=== PATIENT | male | born 2000 | race Caucasian/White ===

== ENCOUNTER → 2019-12-15 14:07 | Outpatient (POV) | payer MEDICAID, SELFPAY | DX: Z00.00 Encounter for general adult medical examination without abnormal findings (principal) ==

== ENCOUNTER 2020-01-09 18:29 | Emergency (ER) | payer OTHER, SELFPAY ==
[2020-01-09 18:50] VITALS: BP 131/67; PULSE 84; RESP 20; TEMP 36.8; O2SAT 100; BMI 25.0
--- NOTE | 2020-01-09 18:56 | HMH.EDUTC ---
[facility] [place] Disposition Clinical Impression: Exposure to COVID-19 virus, Viral syndrome Disposition: Home, Self-Care Condition on Discharge: Good Instructions: DI for Viral Syndrome, Preventing the Spread of Coronavirus Discharge Instructions Additional Instructions: Drink plenty of fluids. Take tylenol for pain or fever. Return if you begin to have difficulty breathing. Follow up with your regular doctor. GO TO THE ER FOR ANY WORSENING SYMPTOMS Prescriptions: Ondansetron [Zofran 4mg ODT] 4 mg PO Q8HP PRN #12 tab.rapdis PRN Reason: Nausea Transmission Status: Received by [id number] Referrals: PCP,No [Primary Care Provider] - Forms: Work/School Release Time of Disposition: 19:28 Medical Decision Making - Medical Records Medical records reviewed: No: I reviewed the patient's medical records. - Mykel Inquiry Pt receiving controlled substance: No Vital Signs: 01/09/20 18:50 01/09/20 19:29 Temperature 98.3 F 98.3 F Temperature Source Oral Pulse Rate 84 Pulse Rate [Right Brachial] 84 Respiratory Rate 20 20 Blood Pressure 131/67 Blood Pressure [Right Arm] 131/67 Blood Pressure Mean [Right Arm] 88 Blood Pressure Source [Right Arm] Automatic Cuff Blood Pressure Position [Right Arm] Sitting 02 Sat by Pulse Oximetry 100 Oxygen Delivery Method Room Air - Lab Data Lab results reviewed: Yes: I reviewed the patient's lab results. Lab Results 01/09/20 19:10: Influenza Type A Ag Negative, Influenza Type B Ag Negative 01/09/20 19:10: Strep Scn Rapid [facility] Negative Orders (Tests/Meds): ORDERS Category Date Time Status Strep Screen Confirmation Stat Micro 01/09/20 19:10 Received [facility] [place] HPI - General Stated complaint: Chills, nausea Time Seen by Provider: 01/09/20 19:10 - History of Present Illness Provider Complaint: He states that he started feeling bad and having body aches and chilling about 6 hours ago. He denies any shortness of breath. He was exposed to covid but it has been about 2 weeks ago. - Related Data Previous Rx's Medication Instructions Recorded Ondansetron [Zofran 4mg ODT] 4 mg PO Q8HP PRN #12 tab.rapdis 01/09/20 Allergies Allergy/AdvReac Type Severity Reaction Status Date / Time No Known Allergies Allergy Verified 02/15/18 17:13 [facility] History - Hepatitis A Screen Attestation statement:: This patient has been screened for Hepatitis A risk factors. I have reviewed the patient's past medical history: Yes Laterality Cases: Bilateral: Tonsillectomy - Social History Alcohol Intake: never Occupational Status: other ROS Obtained: Yes All systems reviewed & no additional complaints - Constitutional Constitutional: Reports chills, Reports fever(s), Reports poor appetite, Reports malaise - Eyes Eyes: Denies eye discharge - ENT Ears, Nose, Mouth, and Throat: Denies dizziness, Denies otalgia, Reports sore throat - Cardiovascular Cardiovascular: Denies chest pain - Respiratory Respiratory: Yes chest congestion, Yes cough, No dyspnea, No stridor, No wheezing - Gastrointestinal Gastrointestingal: Reports: nausea. Denies: abdominal pain, diarrhea, vomiting Physical Exam - General General appearance: alert, in no apparent distress - Head Head exam: atraumatic, normocephalic, normal inspection - Eye Eye exam: Present: normal appearance, PERRL, EOMI - ENT ENT exam: Present: normal exam, normal oropharynx, mucous membranes moist, TM's normal bilaterally, normal external ear exam - Neck Neck exam: Present: normal inspection, full ROM, trachea midline. Absent: meningismus, lymphadenopathy - Chest Chest inspection: Present: normal inspection, symmetric chest wall rise. Absent: tenderness - Respiratory Respiratory exam: Present: normal lung sounds bilaterally. Absent: respiratory distress - Cardiovascular Cardiovascular exam: Present: regular rate, normal rhythm. Absent: JVD - Abdominal Ex
[2020-01-09 19:27] LABS: UTC Influenza A Antigen Negative (Negative); UTC Influenza B Antigen Negative (Negative); UTC Strep Screen (Rapid) Negative (Negative)
[2020-01-09 19:29] VITALS: BP 131/67; PULSE 84; RESP 20; TEMP 36.8; O2SAT 100
[2020-01-11 13:33] LABS: Covid-19 Nasal PCR Sendout Lex Not Detected
== END 2020-01-09 19:30 | disposition home or self-care (01) ==
PROVIDERS: Emergency Provider Nurse Practitioner Family
DX: Z20.828 Contact with and (suspected) exposure to other viral communicable diseases (principal); B34.9 Viral infection, unspecified
CPT/HCPCS: 87804; 87880; 99201; U0004

== ENCOUNTER 2020-02-25 13:21 | Emergency (ER) | payer OTHER, SELFPAY ==
[2020-02-25 14:10] VITALS: BP 140/72; PULSE 82; RESP 18; TEMP 37; O2SAT 98; BMI 25.1
--- NOTE | 2020-02-25 14:30 | HMH.EDUTC ---
[facility] [place] Disposition Clinical Impression: Viral syndrome, Exposure to COVID-19 virus Disposition: Home, Self-Care Condition on Discharge: Good Instructions: Preventing the Spread of Coronavirus Discharge Instructions Additional Instructions: Drink plenty of fluids. Take tylenol for pain or fever. Return if you begin to have difficulty breathing. Follow up with your regular doctor. GO TO THE ER FOR ANY WORSENING SYMPTOMS Prescriptions: Ondansetron [Zofran 4mg ODT] 4 mg PO Q8HP PRN #9 tab.rapdis PRN Reason: Nausea Transmission Status: Received by [id number] Referrals: PCP,No [Primary Care Provider] - Time of Disposition: 14:41 Medical Decision Making - Medical Records Medical records reviewed: No: I reviewed the patient's medical records. - Mykel Inquiry Pt receiving controlled substance: No Vital Signs: 02/25/20 14:10 02/25/20 14:36 Temperature 98.6 F 98.6 F Temperature Source Oral Pulse Rate 82 Pulse Rate [Right Brachial] 82 Respiratory Rate 18 18 Blood Pressure 140/72 Blood Pressure [Right Arm] 140/72 Blood Pressure Mean [Right Arm] 94 Blood Pressure Source [Right Arm] Automatic Cuff Blood Pressure Position [Right Arm] Sitting 02 Sat by Pulse Oximetry 98 Oxygen Delivery Method Room Air [facility] [place] HPI - General Stated complaint: covid test Time Seen by Provider: 02/25/20 14:30 Mode of Arrival: Ambulatory Source of Information: Patient Limitations: No Limitations Description of Symptoms (Recalled from Triage Doc. by RN): REQUESTING COVID TEST D/T EXPOSURE; C/O FEVER AND HEADACHE HEENT Symptoms (Recalled from RN notes): No Resp Symptoms (Recalled from RN notes): No Skin Symptoms (Recalled from RN notes): No MS Symptoms (Recalled from RN notes): No Functional Status (Recalled from RN notes): WNL - History of Present Illness Provider Complaint: He states that he has been having a fever and body aches since yesterday. He has been exposed to covid. - Related Data Previous Rx's Medication Instructions Recorded Ondansetron [Zofran 4mg ODT] 4 mg PO Q8HP PRN #12 tab.rapdis 01/09/20 Ondansetron [Zofran 4mg ODT] 4 mg PO Q8HP PRN #9 tab.rapdis 02/25/20 Allergies Allergy/AdvReac Type Severity Reaction Status Date / Time No Known Allergies Allergy Verified 02/15/18 17:13 - Worker's Comp Is this a Worker's Comp case?: No [facility] History - Hepatitis A Screen Drug use history?: No High risk sexual behaviors?: No History of sexually transmitted infection?: No Currently employed?: No Childcare worker?: No Do you have indoor plumbing?: Yes Do you have electricity?: Yes Attestation statement:: This patient has been screened for Hepatitis A risk factors. I have reviewed the patient's past medical history: Yes Laterality Cases: Bilateral: Tonsillectomy - Social History Alcohol Intake: never Occupational Status: other ROS Obtained: Yes All systems reviewed & no additional complaints - Constitutional Constitutional: Reports system reviewed and no additional complaints, except as docu - Eyes Eyes: Reports system reviewed and no additional complaints, except as docu - ENT Ears, Nose, Mouth, and Throat: Reports system reviewed and no additional complaints, except as docu - Cardiovascular Cardiovascular: Reports system reviewed and no additional complaints, except as docu - Respiratory Respiratory: Reports system reviewed and no additional complaints, except as docu - Gastrointestinal Gastrointestingal: Reports: system reviewed and no additional complaints, except as docu Physical Exam - General General appearance: alert, in no apparent distress - Head Head exam: atraumatic, normocephalic, normal inspection - Eye Eye exam: Present: normal appearance, PERRL, EOMI - ENT ENT exam: Present: normal exam, normal oropharynx, mucous membranes moist, TM's normal bilaterally, normal external ear exam - Neck Neck exam: Present: no
[2020-02-25 14:36] VITALS: BP 140/72; PULSE 82; RESP 18; TEMP 37; O2SAT 98
--- NOTE | 2020-02-25 20:16 | PC.NURSE ---
ATTEMPTED TO CALL PT AND NO ANSWER. WILL TRY AGAIN LATER
--- NOTE | 2020-02-26 14:34 | PC.NURSE ---
PT NOTIFIED OF POSITIVE COVID RESULT
== END 2020-02-25 14:45 | disposition home or self-care (01) ==
PROVIDERS: Emergency Provider Nurse Practitioner Family
DX: U07.1 COVID-19 (principal)
CPT/HCPCS: 99202; G0463; U0003

== ENCOUNTER 2020-03-07 13:59 | Emergency (ER) | payer OTHER, SELFPAY ==
[2020-03-07 14:15] VITALS: BP 138/86; PULSE 89; RESP 18; TEMP 36.9; O2SAT 99; BMI 23.2
--- NOTE | 2020-03-07 14:44 | HMH.EDUTC ---
[facility] [place] Clinical Impression: Encounter for laboratory testing for COVID-19 virus Disposition: Home, Self-Care Condition on Discharge: Good Instructions: DI for COVID-19 (Suspected or Confirmed ), Coronavirus Disease 2019, Preventing the Spread of Coronavirus Discharge Instructions Additional Instructions: *Monitor Temp, Over the counter Motrin or Tylenol as directed/as needed Tylenol every 4 hours and Motrin every 6 hours (as long as your family doctor has told you that you can take it) for fever or pain. and straight to ER if unable to lower temp less than 101.0 after medication given Follow up IMMEDIATELY for new or worsening symptoms or no Noticeable improvement over the next 48-72 hours. 911 for difficulty breathing or swallowing You were tested for today for COVID19 your test result should be back in the next 24-48 hours, you may call to the [facility] [[email or web address]] to see if your test results are back in the next 48 hours [phone] [facility] [[email or web address]] hours are 9am-9pm You was given a handout with instructions for Self Quarantine and Self isolation for while you wait on test results and what to do if they are positive If you are positive the Health Dept will be contacting you also Referrals: PCP,No [Primary Care Provider] - As needed Forms: Work/School Release Time of Disposition: 14:44 Medical Decision Making - Mykel Inquiry Pt receiving controlled substance: No Mykel was queried for this patient: No Vital Signs: 03/07/20 14:15 Temperature 98.4 F Temperature Source Oral Pulse Rate [Right Brachial] 89 Respiratory Rate 18 Blood Pressure [Right Arm] 138/86 Blood Pressure Mean [Right Arm] 103 Blood Pressure Source [Right Arm] Automatic Cuff Blood Pressure Position [Right Arm] Sitting 02 Sat by Pulse Oximetry 99 Oxygen Delivery Method Room Air Orders (Tests/Meds): ORDERS Category Date Time Status Covid-19 Nasal PCR Sendout P&[facility] Stat Lab 03/07/20 14:20 Received [facility] [place] - General Stated complaint: covid test Time Seen by Provider: 03/07/20 14:44 Mode of Arrival: Ambulatory Source of Information: Patient Limitations: No Limitations Description of Symptoms (Recalled from Triage Doc. by RN): NEEDING COVID TEST HEENT Symptoms (Recalled from RN notes): No Resp Symptoms (Recalled from RN notes): No Skin Symptoms (Recalled from RN notes): No MS Symptoms (Recalled from RN notes): No Functional Status (Recalled from RN notes): WNL - History of Present Illness Provider Complaint: Patient state that he tested positive for COVID a couple weeks ago States that his work wanted him to get retested to see if he had a negative Test States that he is no longer having any symptoms so he came in to get tested - Related Data Allergies Allergy/AdvReac Type Severity Reaction Status Date / Time No Known Allergies Allergy Verified 02/15/18 17:13 - Worker's Comp Is this a Worker's Comp case?: No [facility] History - Hepatitis A Screen Drug use history?: No High risk sexual behaviors?: No History of sexually transmitted infection?: No Currently employed?: No Childcare worker?: No Do you have indoor plumbing?: Yes Do you have electricity?: Yes Attestation statement:: This patient has been screened for Hepatitis A risk factors. I have reviewed the patient's past medical history: Yes Laterality Cases: Bilateral: Tonsillectomy - Social History Alcohol Intake: never Occupational Status: other ROS Obtained: Yes All systems reviewed & no additional complaints, Yes Systems reviewed as appropriate & no additional complaints - Constitutional Constitutional: Reports system reviewed and no additional complaints, except as docu, Denies body ache, Denies chills, Denies fever(s), Denies headache(s) - ENT Ears, Nose, Mouth, and Throat: Reports system reviewed and no additional complaints, except as docu - Cardiovascular Cardiovascular: Reports system reviewed and no additional complaints, except as docu - Respiratory Respir
[2020-03-07 14:49] VITALS: BP 138/86; PULSE 89; RESP 18; TEMP 36.9; O2SAT 99
[2020-03-08 08:47] LABS: Covid-19 Nasal PCR Sendout P&C NEGATIVE
== END 2020-03-07 14:50 | disposition home or self-care (01) ==
PROVIDERS: Emergency Provider Nurse Practitioner
DX: Z86.16 Personal history of COVID-19 (principal)
CPT/HCPCS: 99202; G0463; U0004

== ENCOUNTER 2020-11-24 17:11 | Emergency (ER) | payer BC, SELFPAY ==
[2020-11-24 17:20] VITALS: BP 122/78; PULSE 86; RESP 20; TEMP 37.5; O2SAT 98; BMI 26.2
--- NOTE | 2020-11-24 17:36 | XR_ITS ---
PROCEDURE INFORMATION: Exam: XR Chest Exam date and time: 11/24/2020 5:36 PM Age: 20 years old Clinical indication: Cough; Additional info: Covid positive worseing cough TECHNIQUE: Imaging protocol: XR of the chest. Views: 2 views. COMPARISON: No relevant prior studies available. FINDINGS: Lungs: Unremarkable. No consolidation. Pleural spaces: Unremarkable. No pleural effusion. No pneumothorax. Heart/Mediastinum: Unremarkable. No cardiomegaly. Bones/joints: Unremarkable. IMPRESSION: No acute findings.
--- NOTE | 2020-11-24 17:59 | HMH.EDUTC ---
[facility] [place] Clinical Impression: COVID-19, Viral syndrome Acute bronchitis Qualifiers: Bronchitis organism: unspecified organism Qualified Code(s): J20.9 - Acute bronchitis, unspecified Disposition: Home, Self-Care Condition on Discharge: Good Instructions: Acute Bronchitis, DI for Acute Bronchitis, DI for COVID-19 (Suspected or Confirmed ), Preventing the Spread of Coronavirus Discharge Instructions Additional Instructions: Drink plenty of fluids. Take tylenol or ibuprofen for pain or fever. Take the medications as directed. Follow up with your regular doctor. GO TO THE ER FOR ANY WORSENING SYMPTOMS The cough medication (promethazine dm) will make you drowsy, so don't drive or operate heavy machinery after taking it. Prescriptions: Albuterol Sulfate [Albuterol Sulfate Hfa] 2 puffs IH Q6HP PRN 30 Days #1 each PRN Reason: Shortness Of Breath Transmission Status: Received by [facility] Promethazine/Dextromethorphan [Promethazine-Dm Syrup] 5 ml PO Q6HP PRN #240 ml PRN Reason: Cough Transmission Status: Received by [facility] dexAMETHasone [Decadron] 6 mg PO DAILY 6 Days #6 tab Transmission Status: Received by [facility] Azithromycin [Z-Jeremy 250mg Tab*] 250 mg PO UD DOSE PK #6 tab Transmission Status: Received by [facility] Referrals: Provider,Referral, [Primary Care Provider] - Forms: Work/School Release Time of Disposition: 18:17 Medical Decision Making - Medical Records Medical records reviewed: No: I reviewed the patient's medical records. - Mykel Inquiry Pt receiving controlled substance: No Vital Signs: 11/24/20 17:20 11/24/20 18:18 Temperature 99.5 F 99.5 F Temperature Source Oral Pulse Rate 86 Pulse Rate [Right Brachial] 86 Respiratory Rate 20 20 Blood Pressure 122/78 Blood Pressure [Right Arm] 122/78 Blood Pressure Mean [Right Arm] 92 Blood Pressure Source [Right Arm] Automatic Cuff Blood Pressure Position [Right Arm] Sitting 02 Sat by Pulse Oximetry 98 Oxygen Delivery Method Room Air - Lab Data Lab results reviewed: Yes: I reviewed the patient's lab results. - Radiology Data #1 Image(s): Chest Image Reviewed: Yes I reviewed the patient's radiology image, Yes I have reviewed radiologist's interpretation Preliminary Findings: Normal/NAD PROCEDURE INFORMATION: Exam: XR Chest Exam date and time: 11/24/2020 5:36 PM Age: 20 years old Clinical indication: Cough; Additional info: Covid positive worseing cough TECHNIQUE: Imaging protocol: XR of the chest. Views: 2 views. COMPARISON: No relevant prior studies available. FINDINGS: Lungs: Unremarkable. No consolidation. Pleural spaces: Unremarkable. No pleural effusion. No pneumothorax. Heart/Mediastinum: Unremarkable. No cardiomegaly. Bones/joints: Unremarkable. IMPRESSION: No acute findings. [facility] [place] HPI - General Stated complaint: Covid+,Cough,SOB,Congestion Time Seen by Provider: 11/24/20 17:59 Mode of Arrival: Ambulatory Source of Information: Patient Limitations: No Limitations Description of Symptoms (Recalled from Triage Doc. by RN): PATIENT C/O COUGH, SOA, WEAKNESS, AND SHARP PAINS IN LOWER CHEST. REPORTS HE TESTED POSITIVE FOR COVID ON 11/15 AND C/O WORSENING SYMPTOMS HEENT Symptoms (Recalled from RN notes): No Resp Symptoms (Recalled from RN notes): Yes Skin Symptoms (Recalled from RN notes): No MS Symptoms (Recalled from RN notes): No Functional Status (Recalled from RN notes): WNL - History of Present Illness Provider Complaint: He states that he has felt bad for about a little over a week. He tested positive for covid-19 after he started feeling bad. He states that he has continued to get more congested in his chest. He is having pleuritic type chest pain with coughing and deep breathing now. - Related Data Previous Rx's Medication Ins
[2020-11-24 18:18] VITALS: BP 122/78; PULSE 86; RESP 20; TEMP 37.5; O2SAT 98
== END 2020-11-24 18:24 | disposition home or self-care (01) ==
PROVIDERS: Emergency Provider Nurse Practitioner Family
DX: U07.1 COVID-19 (principal); J20.9 Acute bronchitis, unspecified
CPT/HCPCS: 71046; 99202; G0463

== ENCOUNTER 2020-11-27 20:18 | Emergency (ER) | payer BC, SELFPAY ==
[2020-11-27 21:10] VITALS: BP 152/94; PULSE 102; RESP 22; TEMP 37.6; O2SAT 98; BMI 26.2
--- NOTE | 2020-11-27 21:41 | HMH.EDUTC ---
[facility] [place] Disposition Clinical Impression: Viral syndrome Disposition: Home, Self-Care Condition on Discharge: Good Instructions: DI for Cough -- Adult, DI for COVID-19 (Suspected or Confirmed ), Preventing the Spread of Coronavirus Discharge Instructions Additional Instructions: *Monitor Temp, Over the counter Motrin or Tylenol as directed/as needed Tylenol every 4 hours and Motrin every 6 hours (as long as your family doctor has told you that you can take it) for fever or pain. and straight to ER if unable to lower temp less than 101.0 after medication given *Warm salt water gargles may help to soothe the throat *Throat Lozenges *Warm fluids like tea with honey may help to soothe the throat *Sleep elevated *Humidifier/Vaporizer *Continue taking medication as prescribed previously by Physician Straight to ER if any blood tinged sputum or chest pain etc Follow up IMMEDIATELY for new or worsening symptoms or no Noticeable improvement over the next 48-72 hours. 911 for difficulty breathing or swallowing Prescriptions: guaiFENesin [Mucinex 600mg tablet] 1 - 2 tab PO Q12HP PRN #20 tab PRN Reason: Congestion Transmission Status: Pending to [facility] Referrals: Provider,Referral, MD [Primary Care Provider] - As needed Forms: Work/School Release Time of Disposition: 22:00 Medical Decision Making - Mykel Inquiry Pt receiving controlled substance: No Mykel was queried for this patient: No Vital Signs: 11/27/20 21:10 Temperature 99.6 F Temperature Source Oral Pulse Rate [Right Brachial] 102 H Respiratory Rate 22 Blood Pressure [Left Arm] 152/94 H Blood Pressure Mean [Left Arm] 113 Blood Pressure Source [Left Arm] Automatic Cuff Blood Pressure Position [Left Arm] Sitting 02 Sat by Pulse Oximetry 98 Oxygen Delivery Method Room Air - Lab Data Lab results reviewed: Yes: I reviewed the patient's lab results. Medical Decision Narrative: Patient reports [facility] [place] HPI - General Stated complaint: SOA,cough,loss of smell, covid +10 days ago Time Seen by Provider: 11/27/20 21:41 Mode of Arrival: Ambulatory Source of Information: Patient Limitations: No Limitations Description of Symptoms (Recalled from Triage Doc. by RN): PATIENT C/O SOA AND PAIN WITH DEEP BREATHS AND COUGH. DX WITH COVID ON 11/15 AND TREATED FOR BRONCHITIS ON 11/24/20. STATES HE FEELS LIKE HIS SYMPTOMS ARE WORSENING HEENT Symptoms (Recalled from RN notes): No Resp Symptoms (Recalled from RN notes): Yes Skin Symptoms (Recalled from RN notes): No MS Symptoms (Recalled from RN notes): No Functional Status (Recalled from RN notes): WNL - History of Present Illness Provider Complaint: Patient states that he was dx with COVID on 11/15 States that he was seen on Friday and treated for Bronchitis and given zpack and steriods States that it has helped some but he was worried because his last dose is tomorrow and he is suppose to go back to work on and doesnt think he will feel well enough to go back so he came in to get seen States that he is still having pain at times when he takes a deep breath and cough States that he has continued to have a low grade fever - Related Data Previous Rx's Medication Instructions Recorded Albuterol Sulfate [Albuterol 2 puffs IH Q6HP PRN 30 Days #1 each 11/24/20 Sulfate Hfa] Azithromycin [Z-Jeremy 250mg Tab*] 250 mg PO UD DOSE PK #6 tab 11/24/20 Promethazine/Dextromethorphan 5 ml PO Q6HP PRN #240 ml 11/24/20 [Promethazine-Dm Syrup] dexAMETHasone [Decadron] 6 mg PO DAILY 6 Days #6 tab 11/24/20 guaiFENesin [Mucinex 600mg tablet] 1 - 2 tab PO Q12HP PRN #20 tab 11/27/20 Allergies Allergy/AdvReac Type Severity Reaction Status Date / Time No Known Allergies Allergy Verified 02/15/18 17:13 - Worker's Comp Is this a Worker's Comp case?: No [facility] History - Hepatitis A Screen Drug use history?: No High risk sexual behaviors?: No History of sexually transmitted infection?: No Currently employed?
[2020-11-27 21:56] VITALS: PULSE 96
[2020-11-27 21:59] VITALS: BP 152/94; PULSE 96; RESP 22; TEMP 37.6; O2SAT 98
== END 2020-11-27 22:07 | disposition home or self-care (01) ==
PROVIDERS: Emergency Provider Nurse Practitioner
DX: B34.9 Viral infection, unspecified (principal); R43.9 Unspecified disturbances of smell and taste; Z86.16 Personal history of COVID-19
CPT/HCPCS: 99202; G0463

== ENCOUNTER 2023-11-29 03:32 | Emergency (ER) | payer BC, SELFPAY ==
[2023-11-29 03:33] VITALS: BP 156/101; PULSE 89; RESP 18; TEMP 36.8; O2SAT 98; BMI 23.1
--- NOTE | 2023-11-29 03:33 | ECG_ITS ---
APPROVED REPORT Exam: Resting ECG HR:73 bpm ECG Measurements Heart Rate 73 AXES MI 170 P 74 QRSd 93 QRS 83 QT 360 T 59 QTc 386 Conclusion SINUS RHYTHM NORMAL ECG Electronically signed by : ALANNA MILLER, 11/29/2023 07:13:31
--- NOTE | 2023-11-29 03:38 | XR_ITS ---
PROCEDURE INFORMATION: Exam: XR Chest Exam date and time: 11/29/2023 3:36 AM Age: 23 years old Clinical indication: Pain; Chest pressure; Additional info: Cp TECHNIQUE: Imaging protocol: Radiologic exam of the chest. Views: 2 views. COMPARISON: CR XR CHEST 2V 11/24/2020 5:34 PM FINDINGS: Lungs: Unremarkable. No consolidation. Pleural spaces: Unremarkable. No pleural effusion. No pneumothorax. Heart/Mediastinum: Unremarkable. No cardiomegaly. Bones/joints: Unremarkable. IMPRESSION: No acute findings.
--- NOTE | 2023-11-29 03:38 | HMH.EDCP ---
Discharge Plan Disposition Patient Disposition: Home, Self-Care Prescriptions Prescriptions: No Action amoxicillin 500 mg capsule 1,000 mg PO BID Qty: 40 0RF Referrals Follow up/Referrals: Provider,Beto, [Primary Care Provider] - See instructions Kvng Nascimento MD [Staff Physician] - See instructions (chest pain and PVCs intermittently) Activity Restrictions/Add. Instructions Additional Instructions/Restrictions: You were evaluated in the ER and are appropriate for discharge at this time. Please make an appoint with your primary care doctor for reevaluation in a few days. Also follow-up with cardiology, you have been referred to their office for this purpose. Return to the ER with new, worsening, or otherwise concerning symptoms. Clinical Impressions Clinical Impression: Chest pain Print Language Print Language: Pakistani Discharge ED Provider: Gilmar Holguin General Chief Complaint: Chest Pain Stated Complaint: chest pain Time Seen by Provider: 11/29/23 03:37 Mode of Arrival: Ambulatory Source of Information: Patient Limitations: No Limitations Description of Symptoms (Recalled from ER Triage Doc. by RN): pt to ED with c/o chest pain since approx 2100 tonight. History of Present Illness HPI narrative: Otherwise healthy 23-year-old male presents to the ER with complaints of chest pain that started a bit before 9 PM. Over 6-1/2 hours prior to arrival. Patient states over the last few months he has been getting intermittent chest pains that feel like tightness and pressure in the chest with radiation to the left arm. He states tonight it happened before he ate lunch at [facility]. He states eating his lunch did improve his symptoms some. He did not have any other associated symptoms. He finished his shift and came to the ER for evaluation. He states his symptoms are gone at this time. He has no headache, dizziness, numbness, tingling, weakness, nausea, vomiting, no recent illness. He states he did not take any medications prior to arrival. No known cardiac history. Related Data Previous Rx's ?Medication ?Instructions ?Recorded amoxicillin 500 mg capsule 1,000 mg (2 x 500 mg) PO BID #40 10/09/23 caps Allergies Allergy/AdvReac Type Severity Reaction Status Date / Time No Known Allergies Allergy Verified 10/09/23 11:58 [facility] Disclaimer: The information contained in this section may have been updated after the patient was seen, as this information can be updated by other users. Social History (Updated 10/09/23 @ 17:00 by Jewel Dexter MD) Smoking Status: Never smoker alcohol intake: never current occupational status: other Travel in the last 8 weeks: None Other Medical History Have you received the Pneumonia Vaccine: No ROS Obtained: Yes All systems reviewed & no additional complaints except as documented Positive ROS per HPI Physical Exam General General appearance: alert and in no apparent distress Head Head exam: atraumatic and normocephalic Eye Eye exam: Present PERRL and EOMI ENT ENT exam: Present mucous membranes moist Neck Neck exam: Present normal inspection and full ROM; Absent tenderness Chest Chest inspection: Present symmetric chest wall rise Respiratory Respiratory exam: Present normal lung sounds bilaterally; Absent respiratory distress, wheezes or stridor Cardiovascular Cardiovascular exam: Present regular rate and normal rhythm Abdominal Exam Abdominal exam: Present soft; Absent distention, tenderness, guarding or rebound Extremities Exam Extremities exam: Present full ROM; Absent edema Neurological Exam Neurological exam: Present alert and oriented X3; Absent motor sensory deficit Psychiatric Psychiatric exam: Present normal affect and normal mood Skin Skin exam: Present warm and dry HEART Score HEART Score HEART Score assessment performed?: Yes History (anamnesis): Slightly suspicious ECG: Normal Age: <45 years Risk factors: No known risk factors Troponin: </= normal limit HEART Score: 0 Critical Care Critical Care Time Critical Care Time: No Medical Decision Making Medical Records Medical records reviewed: Yes I reviewed the patient's medical records. MR Comment: Patient last seen by Dr. Dexter, his primary care doctor, in September 2023, he was evaluated for respiratory type symptoms and diagnosed with bronchitis. He was prescribed amoxicillin at that time Mykel Inquiry Pt receiving controlled substance: No Vital Signs Vital Signs: 11/29/23 03:33 11/29/23 03:46 11/29/23 04:00 Temperature 98.2 F Temperature Source Oral Pulse Rate 98 H 63 Pulse Rate [Left Radial] 89 Respiratory Rate 18 15 Blood Pressure 136/89 Blood Pressure [Right Arm] 156/101 H Blood Pressure Mean [Right Arm] 119 Blood Pressure Source [Right Arm] Automatic Cuff Blood Pressure Position [Right Arm] Sitting 02 Sat by Pulse Oximetry 98 100 Oxygen Delivery Method Room Air 11/29/23 04:30 11/29/23 05:00 11/29/23 06:02 Temperature 98.6 F Temperature Source Pulse Rate 57 L 68 56 L Pulse Rate [Left Radial] Respiratory Rate 13 16 16 Blood Pressure 129/86 119/81 126/89 Blood Pressure [Right Arm] Blood Pressure Mean [Right Arm] Blood Pressure Source [Right Arm] Blood Pressure Position [Right Arm] 02 Sat by Pulse Oximetry 98 99 Oxygen Delivery Method Lab Data Labs: Lab Results 11/29/23 03:27: HIV 1&2 Antibody Rapid Nonreactive 11/29/23 03:30: WBC 7.2, RBC 5.13, Hgb 16.8, Hct 46.9, MCV 91.4, MCH 32.7 H, MCHC 35.8 H, RDW 12.4, Plt Count 187, MPV 8.3, Neut % (Auto) 51.6, Lymph % (Auto) 37.1, [place] % (Auto) 6.8, Eos % (Auto) 3.5, Baso % (Auto) 1.0, Neut # (Auto) 3.7, Lymph # (Auto) 2.7, [place] # (Auto) 0.5, Eos # (Auto) 0.3, Baso # (Auto) 0.1, PT 11.2, INR 1.00, Sodium 139, Potassium 4.1, Chloride 106, Carbon Dioxide 26, Anion Gap 11.1, BUN 28 H, Creatinine 1.00, Estimated Creat Clear 132, Estimated GFR 92, Est GFR ( Amer) 111, Glucose 95, Calcium 9.9, Total Bilirubin 0.5, AST 24, ALT 19, Alkaline Phosphatase 79, Troponin I < 0.01, Total Protein 7.9, Albumin 5.1 H, Globulin 2.8, Albumin/Globulin Ratio 1.8 11/29/23 05:25: Troponin I < 0.01 11/29/23 03:30 11/29/23 03:30 Response Orders (Tests/Meds): ED MEDICATIONS Discontinued Medications Generic Name Dose Route Start Last Admin Trade Name Freq PRN Reason Stop Dose Admin Aspirin 324 mg 11/29/23 03:37 11/29/23 03:44 Aspirin 81mg Chewable Tablet PO 11/29/23 03:38 324 mg ONCE ONE Administration Belladonna Alkaloids 60 ml 11/29/23 03:37 11/29/23 03:44 Belladonna Alkaloids 60 Ml Ml PO 11/29/23 03:38 60 ml ONCE ONE Administration Sodium Chloride 500 ml 11/29/23 05:59 Sodium Chloride 0.9% 500ml Bag IV 11/29/23 06:00 ONCE ONE ORDERS Category Date Time Status XR chest 2V Stat Exams 11/29/23 03:38 Completed Complete Blood Count Auto Diff Stat Lab 11/29/23 03:30 Completed Comprehensive Metabolic Panel Stat Lab 11/29/23 03:30 Completed HIV (1&2) Antibody Rapid Stat Lab 11/29/23 03:27 Completed Hep C Ab with Reflex to RNA Stat Lab 11/29/23 03:27 Received Prothrombin Time INR Stat Lab 11/29/23 03:30 Completed Troponin I Q3H Lab 11/29/23 03:30 Completed Troponin I Q3H Lab 11/29/23 05:25 Completed MDM Narrative Medical Decision Narrative: In summary, this 23-year-old male who is otherwise healthy presents to the emergency department today with chest pain. On initial evaluation patient is hemodynamically stable, afebrile, states he has no symptoms at this time. Cardiopulmonary exam reassuring, abdominal exam benign, GCS 15, no neurologic deficits. Differential diagnosis includes but is not limited to ACS, I considered PE however patient is PERC negative, no further evaluation for this necessary at this time, I considered arrhythmia, esophageal spasm, electrolyte abnormality. Symptoms improving with eating increase my suspicion for possible GI related etiology. Based on these concerns, I ordered serum labs, cardiac workup, chest x-ray. ECG personally interpreted demonstrates normal sinus rhythm, rate 73, normal axis, normal OK and QTc, no STEMI. ECG did not capture it, however patient is having rare, occasional PVCs. He is not able to feel these happen. Patient received aspirin, GI cocktail for treatment. Labs personally reviewed demonstrate no leukocytosis or anemia, platelets normal, PT/INR normal, CMP with mild prerenal azotemia, since patient is tolerating oral intake he was given oral fluids, initial troponin less than 0.01, in the setting of low heart score this is very reassuring, second troponin is pending. XR personally interpreted demonstrates no acute intrathoracic abnormality, see radiology read for final interpretation. Repeat troponin undetectably low at less than 0.01. On reassessment patient continues to be asymptomatic and is resting comfortably. He is appropriate for discharge at this time. Patient was referred to cardiology for outpatient reevaluation due to intermittent chest pains and occasional PVCs. Patient was given instructions on symptomatic management, follow up instructions, and return precautions for the emergency department. Patient indicated understanding and was discharged in stable condition.
[2023-11-29] MEDS: ASPIRIN 81MG CHEWABLE TABLET 324 MG PO (03:44)
[2023-11-29] MEDS: BELLADONNA ALKALOIDS 60 ML ML PO (03:44)
[2023-11-29 03:45] LABS: Basophils # 0.1 K/mm3 (0-0.2); Eosinophils # 0.3 K/mm3 (0.0-0.4); Eosinophils % 3.5 % (0.1-12.0); Hematocrit 46.9 % (42.0-52.0); Hemoglobin 16.8 g/dL (14.1-18.0); Lymphocytes # 2.7 K/mm3 (0.7-4.5); Lymphocytes % 37.1 % (10-50); Mean Corpuscular HGB Conc 35.8 g/dL (31.8-35.4); Mean Corpuscular Hemoglobin 32.7 pg (27.0-31.2); Mean Corpuscular Volume 91.4 fl (80-94); Mean Platelet Volume 8.3 fl (7.4-10.4); Monocytes # 0.5 K/mm3 (0.1-1.0); Monocytes % 6.8 % (1.7-9.3); Neutrophils # 3.7 K/mm3 (1.8-7.8); Neutrophils % 51.6 % (37.0-80.0); Platelet Count 187 K/mm3 (142-424); Red Blood Count 5.13 M/mm3 (4.60-6.20); Red Cell Distribution Width 12.4 % (11.5-17.5); White Blood Count 7.2 K/mm3 (4.8-10.8)
[2023-11-29 03:46] VITALS: PULSE 98
[2023-11-29 03:47] LABS: Albumin Level 5.1 g/dl (3.5-5.0); Chloride 106 mmol/L (98-107); Potassium 4.1 mmoL/L (3.5-5.1); Sodium 139 mmol/L (136-145)
[2023-11-29 03:50] LABS: Alanine Aminotransferase 19 U/L (12-78); Albumin/Globulin Ratio 1.8 (1.1-1.8); Alkaline Phosphatase 79 U/L (38-126); Anion Gap 11.1 mEq/L (5-15); Aspartate Amino Transferase 24 U/L (17-59); Bilirubin,Total 0.5 mg/dl (0.2-1.3); Blood Urea Nitrogen 28 mg/dl (9-20); Calcium 9.9 mg/dl (8.4-10.2); Carbon Dioxide 26 mmol/L (22.0-30.0); Creatinine Clearance Estimated 132 mL/min (50-200); Estimated Glomerular Filt Rate 92 ml/min (>60); GFR (African American) 111 ML/MIN (>60); Globulin 2.8 g/dL (1.3-3.2); Glucose 95 mg/dl (74-100); Total Protein,Serum 7.9 g/dl (6.3-8.2)
[2023-11-29 03:51] LABS: Prothrombin Time 11.2 seconds (10.1-12.5)
[2023-11-29 04:00] VITALS: BP 136/89; PULSE 63; RESP 15; O2SAT 100
[2023-11-29 04:07] LABS: Troponin I < 0.01 ng/ml (0.00-0.034)
[2023-11-29 04:30] VITALS: BP 129/86; PULSE 57; RESP 13; O2SAT 98
[2023-11-29 04:33] LABS: HIV (1&2) Antibody Rapid NONREACTIVE (NONREACTIVE)
[2023-11-29 05:00] VITALS: BP 119/81; PULSE 68; RESP 16; O2SAT 99
[2023-11-29 05:49] LABS: Troponin I < 0.01 ng/ml (0.00-0.034)
[2023-11-29 06:02] VITALS: BP 126/89; PULSE 56; RESP 16; TEMP 37; O2SAT 98
[2023-11-30 08:10] LABS: HCV Ab Non Reactive (Non Reactive)
== END 2023-11-29 06:07 | disposition home or self-care (01) ==
PROVIDERS: Emergency Provider Emergency Medicine
DX: R07.9 Chest pain, unspecified (principal)
CPT/HCPCS: 71046; 80053; 84484; 85025; 85610; 86803; 87389; 93005; 99284

== ENCOUNTER 2024-02-12 19:05 | Emergency (ER) | payer BC, SELFPAY ==
[2024-02-12 19:08] VITALS: BP 147/101; PULSE 89; RESP 18; TEMP 37; O2SAT 100; BMI 23.1
--- NOTE | 2024-02-12 19:30 | ED_ITS ---
<Statement entered by Gabi Amador DO - 02/12/24 22:11> I was consulted by the MIGUEL, and we discussed the complexity of the problems being addressed. I approved the treatment and management plan for this patient's care in the emergency department, thus performing a substantive portion of the medical decision making. Gabi Amador DO Discharge Plan Disposition Patient Disposition: Home, Self-Care Condition: Good Prescriptions Prescriptions: No Action amoxicillin 500 mg capsule 1,000 mg PO BID Qty: 40 0RF Referrals Follow up/Referrals: Jewel Dexter MD [Primary Care Provider] - See instructions Activity Restrictions/Add. Instructions Additional Instructions/Restrictions: If you are still having symptoms tomorrow please contact my doctor here in [place] and schedule an appointment for reevaluation. If you have increasing pain redness swelling or the inability to see return to the emergency department. Have given you an eye ointment to help with the irritation. Clinical Impressions Clinical Impression: Foreign body in conjunctival sac, left eye, initial encounter Print Language Print Language: Slovenian Discharge ED Provider: Gabi Amador General Adult HPI General Chief complaint: Eye Problems Stated complaint: AO 02/12/24 1830 FB left eye Time Seen by Provider: 02/12/24 19:30 History of Present Illness HPI narrative: Patient presents for evaluation of a foreign body sensation in his left eye. Patient states he was cutting wood and felt sawdust hit his left eye. He had a foreign body sensation and he tried to irrigate it but still retains a sensation in the left medial upper lid. He denies any difficulty seeing no blurred vision. Related Data Previous Rx's ?Medication ?Instructions ?Recorded amoxicillin 500 mg capsule 1,000 mg (2 x 500 mg) PO BID #40 10/09/23 caps Allergies Allergy/AdvReac Type Severity Reaction Status Date / Time No Known Allergies Allergy Verified 10/09/23 11:58 [facility] Disclaimer: The information contained in this section may have been updated after the patient was seen, as this information can be updated by other users. Social History (Updated 10/09/23 @ 17:00 by Jewel Dexter MD) Smoking Status: Never smoker alcohol intake: never current occupational status: other Travel in the last 8 weeks: None Have you lived/traveled outside US in past 30 days?: No Contact w/someone who lives/traveled outside US past 30 days?: No Exposure to someone with infectious disease in past 14 days?: No Do you have a fever (greater than 100.4 F or 38 C)?: No Have you tested positive for COVID-19: No Exposed to someone with COVID-19 in past 14 days?: No Do you have a sore throat?: No Do you have a cough?: No Do you have any weakness?: No Do you have any diarrhea?: No Are you experiencing any unusual bleeding?: No Do you have any muscle aches/pain?: No Do you have any abdominal pain?: No Are you experiencing loss of taste or smell?: No Other Medical History Have you received the Pneumonia Vaccine: No ROS Obtained: Yes Systems reviewed as appropriate & no additional complaints except as documented Physical Exam General General appearance: alert and in no apparent distress Respiratory Respiratory exam: Present normal lung sounds bilaterally Cardiovascular Cardiovascular exam: Present regular rate Neurological Exam Neurological exam: Present alert and oriented X3 Skin Skin exam: Present dry Medical Decision Making Medical Records Screening: Per USPSTF and CDC recommendations, given the prevalence of disease in our region, it is our hospital?s policy to screen for HIV and viral Hepatitis for all patients aged 18 and over and those with ongoing risk factors. Mykel Inquiry Pt receiving controlled substance: No Vital Signs: 02/12/24 19:08 Temperature 98.6 F Temperature Source Oral Pulse Rate [Right Brachial] 89 Respiratory Rate 18 Blood Pressure [Right Arm] 147/101 H Blood Pressure Mean [Right Arm] 116 Blood Pressure Source [Right Arm] Automatic Cuff Blood Pressure Position [Right Arm] Supine 02 Sat by Pulse Oximetry 100 Oxygen Delivery Method Room Air Medical Decision Narrative: In summary patient is a 23-year-old female who presents to the emergency department for evaluation of foreign body sensation to left eye. Patient is hemodynamically stable upon arrival, afebrile. Physical exam is remarkable for conjunctival injection of the left eye but extraocular movements are intact without pain.. Differential diagnosis includes foreign body versus corneal ulcer versus conjunctival irritation etc. Initial workup will be conducted with exam under topical anesthesia. Initial interventions include topical anesthesia. I nitial workup performed by me and after topical anesthesia fluorescein stain was applied to the left eye. Under black light there is no pooling either in the conjunctive around a foreign body or through the cornea. Irrigated with normal saline by myself. Exam under Neath the lids was performed after everting the lids there is some lid conjunctival irritation in the medial aspect but no foreign body found.. Given this patient is given instructions for follow-up, strict return precautions for worsening signs or symptoms, I gave the patient erythromycin ointment to help with irritation. Critical Care Critical Care Time Critical Care Time: No
[2024-02-12 19:46] VITALS: BP 147/101; BP 147/82; PULSE 84; PULSE 85; RESP 18; TEMP 36.8; TEMP 37; O2SAT 97; O2SAT 99
== END 2024-02-12 19:48 | disposition home or self-care (01) ==
PROVIDERS: Emergency Provider Emergency Medicine; PCP Internal Medicine
DX: T15.12XA Foreign body in conjunctival sac, left eye, initial encounter (principal); H57.12 Ocular pain, left eye
CPT/HCPCS: 99283

== ENCOUNTER 2024-08-30 11:49 | Outpatient (CLI) | payer BC, SELFPAY ==
--- OUTSIDE RECORDS SUMMARY | 2024-08-30 11:51 | XMS_ITS | Clinical Summary ---
Author Organization [facility] Address [address] [place] [address] Phone [email or web address] Providers Care Alumni Relations Manager Name Role Phone Unavailable Primary Care Provider Unavailabl e Allergies No known active allergies Medications No known medications Active Problems No known active problems Social History Tobacco Use Types Packs/Day Years Used Date Smoking Tobacco: Never Smokeless Tobacco: Never Tobacco Cessation:Counseling Given: Not Answered Intimate Partner Violence Answer Date R ecorded Insults You Not on file 06/02/2020 Threatens You Not on file 06/02/2020 Screams at You Not on file 06/02/2020 Physically Hurt Not on file 06/02/2020 Intimate Partner Violence Score Not on file 06/02/2020 Depression Answer Date Recorded PHQ Total Score 0 05/21/2024 Stress Answer Date Recorded Stress in your Life Not on file 12/24/2023 Dealing with Stress 3 12/24/2023 Sex and Gender Information Value Date Recorded Sex Assigned at Not on file Legal Sex Male 9:11 AM [employer] Gender Identity Not on file Sexual Orientation Not on file Last Filed Vital Signs Vital Sign Reading Time Taken Comments Blood Pressure 126/78 07/19/2024 12:19 PM EDT Pulse 73 07/19/2024 12:19 PM EDT Temperature 36.8 C (98.2 F) 07/19/2024 12:19 PM EDT Respiratory Rate 18 05/21/2024 12:00 PM EDT Oxygen Saturation 99% 05/21/2024 12:00 PM EDT Inhaled Oxygen Concentration - - Weight 90.5 kg (199 lb 9.6 oz) 07/19/2024 12:19 PM EDT Height 188 cm (6' 2 ) 07/19/2024 12:19 PM EDT Body Mass Index 25.63 07/19/2024 12:19 PM EDT Plan of Treatment Health Maintenance Due Date Last Done Comments Dental Cleaning/Exam 1999 HIV Screening 1999 Hepatitis C Screening 1999 HPV Immunization (1 - Male 3-dose series) 09/21/2014 Hep B Infection Screening - Triple Screen 09/21/2017 Hepatitis B Immunization (1 of 3 - 19+ 3-dose series) 09/21/2018 Annual Preventive Exam 04/12/2021 1, 03/03/2019 Tetanus Diphtheria and Pertussis Immunization (2 - Td or Tdap) 09/15/2022 09/15/2012 Covid-19 Immunization (1 - season) 2023 Influenza Immunization (#1) 2024 Meningococcal Immunization Aged Out 09/15/2012 N o longer eligible based on patient's age to complete this topic Varicella Immunization Aged Out 09/15/2012 No lo nger eligible based on patient's age to complete this topic HIB Immunization Aged Out No longer e ligible based on patient's age to complete this topic Hepatitis A Immunization Aged Out No longer eligible based on patient's age to complete this topic Men B Immunization Aged Out No longer eligible based on patient's age to complete this topic Pneumococcal: Ped (0 to 5 Yr s) and At-Risk Member (6 to 64 Yrs) Aged Out No longer eligible b ased on patient's age to complete this topic Polio Immunization Aged Out No longer eligible based on patient's age to complete this topic Insurance OPT OUT NO COPAY NB
[2024-08-30 12:07] LABS: Hematocrit 45.8 % (42.0-52.0); Hemoglobin 15.6 g/dL (14.1-18.0); Immature Granulocytes % 0.4 %; Mean Corpuscular HGB Conc 34.1 g/dL (31.8-35.4); Mean Corpuscular Hemoglobin 31.1 pg (27.0-31.2); Mean Corpuscular Volume 91.2 fl (80-94); Nucleated Red Blood Cells % 0 %; Platelet Count 198 K/mm3 (142-424); Red Blood Count 5.02 M/mm3 (4.60-6.20); Red Cell Distribution Width-SD 38.2 fL; White Blood Count 4.9 K/mm3 (4.8-10.8)
[2024-08-30 12:55] LABS: Alanine Aminotransferase 15 U/L (12-78); Albumin Level 4.9 g/dl (3.5-5.0); Alkaline Phosphatase 70 U/L (38-126); Anion Gap 17.5 mEq/L (5-15); Aspartate Amino Transferase 20 U/L (17-59); Bilirubin,Direct 0.2 mg/dl (0.0-0.4); Bilirubin,Indirect 0.7 mg/dL (0.0-0.9); Bilirubin,Total 0.9 mg/dl (0.2-1.3); Bilirubin,Unconjugated 0.7 mg/dL (0.0-1.1); Blood Urea Nitrogen 19 mg/dl (9-20); Calcium 10.4 mg/dl (8.4-10.2); Carbon Dioxide 26 mmol/L (22.0-30.0); Chloride 100 mmol/L (98-107); Cholesterol 129 mg/dl (140-200); Creatinine,Serum 0.90 mg/dl (0.66-1.25); Estimated Glomerular Filt Rate 104 ml/min (>60); GFR (African American) 125 ML/MIN (>60); Glucose 93 mg/dl (74-100); HDL Cholesterol 39 mg/dl (40-60); Magnesium 1.9 mg/dl (1.6-2.3); Potassium 4.5 mmoL/L (3.5-5.1); Sodium 139 mmol/L (136-145); Total Protein,Serum 7.2 g/dl (6.3-8.2); Triglycerides 75 mg/dl (30-150)
[2024-08-30 13:12] LABS: Free T4 (Free Thyroxine) 1.17 ng/dl (0.78-2.19)
[2024-08-30 13:26] LABS: Thyroid Stimulating Hormone 1.77 uIU/mL (0.465-4.68)
== END 2024-08-30 23:59 | disposition home or self-care (01) ==
LOC: LAB 11:49
PROVIDERS: PCP Internal Medicine; Visit Provider Nurse Practitioner
DX: R53.83 Other fatigue (principal); R06.02 Shortness of breath
CPT/HCPCS: 36415; 80048; 80061; 80076; 82565; 83735; 84439; 84443; 84520; 85025

== ENCOUNTER 2024-11-03 11:59 | Outpatient (CLI) | payer BC, SELFPAY ==
--- OUTSIDE RECORDS SUMMARY | 2024-11-03 12:02 | XMS_ITS | Clinical Summary ---
Author Organization [facility] Address [address] [place] [address] Care Team Providers Care Regulatory Process Manager Name Role Phone Jewel Dexter MD Primary Care Provider [phone] Social History Tobacco Use Types Packs/Day Years Used Date Smoking Tobacco: Never Assessed Sex and Gender Information Value Date Recorded Sex Assigned at Not on file Legal Sex Male 4:11 PM EDT Gender Identity Not on file Sexual Orientation Not on file Plan of Treatment Upcoming Encounters Date Type Department Care Team (Late st Contact Info) Description 11/30/2024 2:00 PM EDT Office Visit [facility] [address] [place] [address] Irene Roblero APRN [address] [place] [address] Health Maintenance Due Date Last Done Comments ANNUAL PHYSICAL 1999 HEPATITIS C SCREENING 1999 TDAP/TD VACCINES (1 - Tdap) 09/21/2018 INFLUENZA VACCINE 09/17/2024 COVID-19 Vaccine ( - 2023-2 5 season) 2024 Pneumococcal Vaccine 0-49 Aged Out No longer eligible based on patient's age to complete this topic Insurance [facility] PPO Member Subscriber Plan / Payer (Ef fective 2021-Present) Name:Greg Ortega Relation to Subscriber:Self Name:Greg Ortega Payer ID:[id number] (NAIC) Type:Not on file Address: [facility] [address] [place] [id number] Care Teams Regulatory Process Manager Relationship Specialty Start Date End Date Jewel Dexter MD [address] [facility] [address] [place] [id number] PCP - General Internal Medicine 10/19/24
--- OUTSIDE RECORDS SUMMARY | 2024-11-03 12:02 | XMS_ITS | Clinical Summary ---
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
[2024-11-03 12:50] VITALS: BMI 25.4
[2024-11-03] MEDS: IVABRADINE HCL 7.5MG TABLET PO (12:58)
[2024-11-03] MEDS: METOPROLOL TARTRATE 50MG TABLET PO (12:59)
--- NOTE | 2024-11-03 13:00 | CT_ITS ---
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 A noncontrast coronary calcium scan was performed. A CT attenuation threshold of 130 Hounsfield units (HU) was used for the detection of calcium in contiguous voxels of 1 sq mm in area to be counted as individual lesions. Bolus tracking in the ascending aorta with a threshold of 180 HU was performed. Immediately afterwards, ECG synchronized cardiac CT was then performed from the cardiac base to apex using retrospective gating with ECG tube current modulation. A total of 85 mL of Isovue 370 mg/mL contrast medium was administered at 5 mL/sec followed by a saline flush using a biphasic injection protocol. A tube voltage of 120 KVp was used. The average heart rate at the time of acquisition was 48 bpm and regular. Image Reconstruction Transaxial images were reconstructed at 0.67 mm slide thickness. Data was reviewed interactively on an advanced workstation capable of 2 and 3-dimensional displays in all conventional reconstruction formats, including multiplanar reformations, maximum intensity projections, curved multiplanar reformations, and volume rendered reconstructions. When applicable, selected routine images describing the relevant coronary anatomy and pathology were saved and sent to PACS. Complications None Technical Quality Overall image quality was good. Coronary artery opacification was adequate. Total DLP (Dose-Length Product) is 1877.5 mGy-cm. The reported value represents the total of one or more individual components during the CT acquisition of this date and at this time, and as such, the same value may appear in more than one CT report depending on the interpreting/reporting physicians. COMPARISON None FINDINGS CT Coronary Calcium Scoring LMA (Left Main Artery) = 0 LAD (Left Anterior Descending) = 0 LCX (Left Coronary Circumflex) = 0 RCA (Right Coronary Artery) = 0 Total Calcium Score = 0 using the AJ-130 method. The interpretation of the calcium heart score is based on the following continuum*: 0 = no calcified plaque detected (risk of coronary artery disease is very low ??? less than 5%) 1-10 = calcium detected in extremely minimal levels (risk of coronary diseases is still low ??? less than 10%) 11-100 = mild levels of plaque detected with certainty (mild or minimal narrowing of heart arteries is likely) 101-400 = definite,at least moderate levels of plaque detected (relatively high risk of a heart attack within 3-5 years) >401-999 = extensive levels of plaque detected (high risk of heart attack, high levels of vascular disease are present, high likelihood of at least one significant coronary narrowing) *The calcium heart score quantifies the burden of coronary calcification/plaque in the coronary arteries. The calcium heart score is not able to evaluate the presence or burden of non-calcified (i.e. soft) plaque. There is no identifiable calcification in the aortic valve, mitral annulus or mitral valve, pericardium, or myocardium. Coronary CT Angiography The coronary arterial system is left dominant. Quantitative Stenosis Grading: Left Main (LM): The left main originates normally from the left sinus of Valsalva. The LM bifurcates into the left anterior descending artery and left circumflex artery. The LM is patent with no evidence of atherosclerosis. Left Anterior Descending (LAD) and Diagonal Branches: The LAD gives off 2 diagonal branch(es). The LAD and its branches are patent with no evidence of atherosclerosis. There is no evidence of LAD-myocardial bridge. Left Circumflex (LCX) and Obtuse Marginals (OM): The LCX gives off 2 Obtuse Marginal (OM) branch(es). The LCX and its branches are patent with no evidence of atherosclerosis. Right Coronary Artery (RCA): The RCA originates normally from the right sinus of Valsalva. The RCA and its branches are patent with no evidence of atherosclerosis. Non-Coronary Cardiac Findings: Analysis of the left ventricular (LV) structure and function was performed after 3-D reconstruction of the LV from axial images, with user-corrected automatic contouring for assessment of LV volumes and user-defined reconstruction from oblique planes for measurement of 3-D cardiac structure and function. -The left ventricle systolic function is normal. -There is no left atrial appendage filling defect. Two right pulmonary veins and two left pulmonary veins drain normally into the left atrium. -No pericardial thickening or calcification. -Central and branch pulmonary arteries in the [id number] are unremarkable. -Thoracic aorta within the visualized thoracic aortic-branches in the [id number] is unremarkable. Extracardiac Structures No significant extra-cardiac findings. Note, however, that this study is focused on the cardiac findings. IMPRESSION -Absence of coronary calcification with an Agatston score = 0 using the AJ-130 method. -No evidence of significant flow-limiting atherosclerosis of the coronary arteries. -No evidence of coronary anomalies or myocardial bridges. -CAD-RADS 0. Management recommendations per ACC/AHA guidelines*, as clinically appropriate. *Recommendations: CAD RADS 0: Reassurance. Consider non-atherosclerotic causes of chest pain. CAD RADS 1: Consider non-atherosclerotic causes of chest pain. Consider preventive therapy and risk factor modification. CAD RADS 2: Consider non-atherosclerotic causes of chest pain. Consider preventive therapy and risk factor modification, particularly for patients with nonobstructive plaque in multiple segments. CAD RADS 3: Consider further functional testing. Consider symptom-guided anti-ischemic and preventive pharmacotherapy as well as risk factor modification per published guideline statements. CAD RADS 4A: Consider further functional testing or invasive coronary angiography with revascularization per published guideline statements. Consider symptom-guided anti-ischemic and preventive pharmacotherapy as well as risk factor modification per published guideline statements. CAD RADS 4B: Invasive coronary angiography recommended with revascularization per published guideline statements. Consider symptom-guided anti-ischemic and preventive pharmacotherapy as well as risk factor modification per published guideline statements. CAD RADS 5: Consider invasive angiography and/or viability assessment with revascularization per published guideline statements. Consider symptom-guided anti-ischemic and preventive pharmacotherapy as well as risk factor modification per published guideline statements. CRITICAL RESULT None COMMUNICATION Per this written report The coronary and cardiac findings of this CCTA were reviewed, reported, and signed by Kvng Nascimento MD (Core Winding Operator). Conclusion Electronically signed by : Marianela Nascimento MD 11/06/2024 22:31:20
[2024-11-03 13:03] VITALS: BP 141/80; PULSE 74; RESP 18; TEMP 36.6; O2SAT 98
[2024-11-03 13:21] LABS: Anion Gap 10.3 mEq/L (5-15); Blood Urea Nitrogen 14 mg/dl (9-20); Calcium 9.4 mg/dl (8.4-10.2); Carbon Dioxide 28 mmol/L (22.0-30.0); Chloride 103 mmol/L (98-107); Creatinine Clearance Estimated 179 mL/min (50-200); Creatinine,Serum 0.80 mg/dl (0.66-1.25); Estimated Glomerular Filt Rate 118 ml/min (>60); GFR (African American) 143 ML/MIN (>60); Glucose 80 mg/dl (74-100); Potassium 4.3 mmoL/L (3.5-5.1); Sodium 137 mmol/L (136-145)
--- NOTE | 2024-11-03 13:45 | CA_ITS ---
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 Echo Enhancing Agent Indication: Rule out Shunt Agent(s) / Amount(s) Used: Agitated Saline 20 cc 2D Dimensions IVSd 0.70 cm M: 0.6-1.2 LVEF (Visual) 42.60 % PWd 0.61 cm M: 0.6 - 1.2 LVEF (Parikh's) 56.30 % M: 52 - 72 LVDd 5.03 cm M: 4.2 - 5.9 LV Volume 109.90 mL M: 62 - 150 LVDs 3.97 cm M: 2.5 - 4.0 LV Volume Index 50.4 mL/m2 M: 34 - 74 EF AP4 45.80 % EF AP2 57.8 % EF BP 56.3 % GL Strain -17.7 % M-Mode Dimensions RVDd 2.65 cm (0.9-2.6) LA Diam 2.94 cm (1.9-4.0) LVDd 5.15 cm (3.5-5.7) LVDs 4.22 cm (3.5-5.7) IVSd 0.72 cm (0.6-1.1) PWd 0.79 cm (0.6-1.1) EF (Teich) 37.20% FS 18.10% EDV (Teich) 126.60 mL ESV (Teich) 79.50 mL LV Diastology E Decel Time 333 (160-240 msec) E/A Ratio 2.0 Mitral Valve MV E Max Jaswinder. 67.0 (40-130 cm/s) MV A Velocity 34.0 (40-130 cm/s) E/A Ratio 2.00 MV PHT 98.0 ms Left Ventricle The left ventricle is normal size. Left ventricular systolic function is normal. The left ventricular ejection fraction is within the normal range. There is normal left ventricular wall thickness. There is normal LV segmental wall motion. The left ventricular diastolic function is normal. LVEF is 55% Right Ventricle The right ventricle is normal size. The right ventricular systolic function is normal. Atria The left atrium size is normal. The right atrium size is normal. The interatrial septum appears aneurysmal. Agitated saline administration demonstrates presence of interatrial shunt. Aortic Valve The aortic valve opens well. There is no hemodynamically significant aortic valvular stenosis. No aortic regurgitation is present. Mitral Valve The mitral valve is normal in structure. No evidence of mitral valve stenosis. Trace mitral regurgitation is present. Tricuspid Valve The tricuspid valve leaflets are thin and pliable. Trace tricuspid regurgitation. There is insufficient TR jet to estimate RVSP. Pulmonic Valve The pulmonary valve is grossly normal in structure. Mild pulmonic valve regurgitation is present. Great Vessels The aortic root is normal in size. IVC is normal in size and collapses >50% with inspiration. Pericardium There is no pericardial effusion. Other Information Study Quality: Adequate Conclusion Normal biventricular systolic function. Mild PI. The interatrial septum appears aneurysmal. Agitated saline administration demonstrates presence of interatrial shunt. Electronically signed by : Marianela Nascimento MD 11/06/2024 22:05:30
[2024-11-03 13:50] VITALS: BP 143/96; PULSE 58; RESP 20; O2SAT 100
[2024-11-03 13:55] VITALS: BP 118/82; PULSE 54; RESP 20; O2SAT 100
[2024-11-03 14:00] VITALS: BP 117/71; PULSE 56; RESP 20; O2SAT 100
[2024-11-03] MEDS: IOPAMIDOL-370 (76%);100ML BOTTLE 85 ML IV (14:28)
[2024-11-03] MEDS: 0.9 % SODIUM CHLORIDE 50 ML VIAL IV (14:28)
[2024-11-03] MEDS: SODIUM CHLORIDE 0.9% 10ML SYR (RAD ONLY) 10 ML IV (14:28)
== END 2024-11-03 14:05 | disposition home or self-care (01) ==
LOC: RAD 12:00
PROVIDERS: PCP Internal Medicine; Visit Provider Nurse Practitioner
DX: I37.1 Nonrheumatic pulmonary valve insufficiency (principal); I25.3 Aneurysm of heart; I20.9 Angina pectoris, unspecified; R00.0 Tachycardia, unspecified; Z82.49 Family history of ischemic heart disease and other diseases of the circulatory system
CPT/HCPCS: 75574; 80048; 93306; Q9967

== ENCOUNTER 2024-11-17 10:17 | Outpatient (CLI) | payer BC, SELFPAY ==
--- OUTSIDE RECORDS SUMMARY | 2024-11-08 20:41 | XMS_ITS | Encounter Summary ---
Author Organization Healthcare Address [address] [id number] Care Team Providers Care Credit Interviewer Name Role Phone Jewel Dexter MD Primary Care Provider [phone] Reason for Visit * Reason Comments Chest Pain Encounter Details Date Type Department Care Team ([facility] st Contact Info) Description 11/08/2024 8:41 PM EDT - 11/09/2024 12:38 AM EDT Emergency [facility] Emergency Department [address] [place] [address] Georgie Maxwell MD [address] [place] [address] Other chest pain (Primary Dx) Discharge Disposition: Home or Self Care Social History Tobacco Use Types Packs/Day Years Used Date Smoking Tobacco: Never Assessed Sex and Gender Information Value Date Recorded Sex Assigned at Not on file Legal Sex Male 7:34 PM EDT Gender Identity Not on file Sexual Orientation Not on file documented as of this encounter Last Filed Vital Signs Vital Sign Reading Time Taken Comments Blood Pressure 131/84 11/08/2024 11:27 PM EDT Pulse 70 11/08/2024 11:27 PM EDT Temperature 36.6 C (97.9 F) 11/08/2024 11:27 PM EDT Respiratory Rate 16 11/08/2024 11:27 PM EDT Oxygen Saturation 98% 11/08/2024 11:27 PM EDT Inhaled Oxygen Concentration - - Weight 90.7 kg (200 lb) 11/08/2024 7:08 PM EDT Height 188 cm (6' 2 ) 11/08/2024 7:08 PM EDT Body Mass Index 25.68 11/08/2024 7:08 PM EDT documented in this encounter Functional Status * Calculated C-SSRS Risk Score (Lifetime/Recent) Answer Date of Assessment Author No Risk Indicated 11/08/2024 9:40 PM EDT Zoey Gill RN * Question Answer Date of Assessment Author 1. Wish to be (Past 1 Month) No 025 9:40 PM EDT Zoey Gill RN 2. Non-Specific Active Suici whit Thoughts (Past 1 Month) No 11/08/2024 9:40 PM EDT Zoey Gill RN 6. Suicidal Behavior (Lifetime) No 9:40 PM EDT Zoey Gill RN documented as of this encounter Discharge Instructions * Discharge Instructions* Danica Wills MD - 11/09/2024 12:30 AM EDT Follow up with odd bundle worker for further outpatient work up of chest pain Return to care if severe and intractable chest pain recurs documented in this encounter Miscellaneous Notes * ED Provider Notes - Danica Wills MD - 11/08/2024 7:04 PM EDT Images from the original note were not included. - HPI Chief Complaint Patient presents with Chest Pain Greg Ortega is a 24 y.o. male who presents to the ED with chest pain. Pt c/o onset CP, nausea, SOA, and left arm pain 1530 after he returned home from work. He has had intermittent chest pain over the last year is currently following with odd bundle worker. States originally the chest pain was few times monthly and is now occurring daily. It happens randomly, both at rest and with exertion. He describes the pain as dull and then becomes sharp radiates to left arm under axillary area. This is not subside with rest and can last for hours. He recently had echocardiogram and CT coronary and has received results but has not yet seen odd bundle worker. Has strong family history of cardiac disease. He also complains fatigue over last 3 months but significantly worse over past 3-4 weeks. He denies diaphoresis, V/D, dysuria.Patient has no other complaints at this time. Patient History No past medical history on file. No past surgical history on file. No family history on file. Allergies: No Known Allergies Physical Exam ED Triage Vitals [11/08/24 1908] Temp Heart Rate Resp BP 36.9 ??C (98.4 ??F) 107 16 (!) 163/83 SpO2 Temp Source Heart Rate Source Patient Position 100 % Oral -- -- BP Location FiO2 (%) -- -- Physical Exam Constitutional: General: He is not in acute distress. HENT: Head: Normocephalic. Comments: No facial swelling Mouth/Throat: Mouth: Mucous membranes are moist. Pharynx: Oropharynx is clear. Cardiovascular: Rate and Rhythm: Tachycardia present. Pulmonary: Effort: Pulmonary effort is normal. No respiratory distress. Breath sounds: Normal air entry. Comments: Speaking full sentences. Symmetric chest rise Abdominal: General: There is no distension. Musculoskeletal: General: No deformity. Normal range of motion. Cervical back: Normal range of motion. Comments: Atraumatic, moves all extremities spontaneously Neurological: Mental Status: He is alert. Mental status is at baseline. Comments: Awake Psychiatric: Behavior: Behavior normal. Clifford Coma Scale Score: 15 ED Course & MDM Date/Time: 11/08/2024 1:24 AM Scribe Attestation: This note was dictated to me, Monique Crawford, acting as a scribe for Peyton Ceballos MD. Attending Attestation: The documentation was recorded by Monique Crawford acting as scribe in my presence at the time of the encounter and accurately reflects the service I personally performed. - Assessment: 24 y.o. male presents to ED with complaint of chest pain. It should be noted that the chronic conditions includes IBS, which currently is at goal therapy. Patient presents with left-sided chest pain that has been occurring intermittently over the last year but have increased in severity and frequency. Describes pain and dull, then sharp that radiates to left axilla. Chest pain is not associated with exertion or eating. Happens randomly does not improve with rest, will last for hours. Takes ibuprofen or aspirin with minimal relief. Following with Cardiology outpatient and recently had echocardiogram and CCTA with results. Echo showed normal EF of 55% and mild tricuspid and mitral regurgitation and intraatrial septal aneurysm. It is unlikely that these findings are the primary cause of his chest pain. CT coronaries showed no ca lcifications or evidence of atherosclerosis. He has follow up cardiology appointment this week. Cardiac workup in the ED unremarkable. Patient had EKG with normal sinus rhythm, chest x-ray normal, troponin was negative. He was hemodynamically stable mildly tachycardic to 107 which she states isaround his baseline. There was low suspicion for PE, as patient did not have risk factors, denied unilateral leg swelling, no tachypnea, not hypoxic and intermittent nature of symptoms. Patient encouraged to continue work up outpatient which may include holter monitor, sleep study or autoimmune work up. Patient has physical job at [employer] that required repetitive movement, it is possible MSK pain is exacerbating symptoms. Ultimately his chest pain subsided and he was stable for discharge. Differential Diagnosis: costochondritis, MSK chest pain, GERD, pericarditis, ACS In order to fully explore the differential diagnosis the following treatments and tests were ordered: All Other Orders Ordered Status Ordering Provider 11/08/24 2250 XR Chest 1 View One time imaging Final result DANICA WILLS 11/08/242106 PROCEDURE ONCE Canceled THE, PEYTON Romeo 11/08/242034 Hepatitis C Antibody - ED Once Final result THE, PEYTON S 11/08/242034 ED Protocol - HIV 1/2 Antibody/Antigen Screen Once Final result THE, PEYTON Romeo 11/08/242035 ED HIV 1/2 Antibody/Antigen Screen w/Reflex to HIV 1/2 Differentiation PROCEDURE ONCE Final result THE, PEYTON S 11/08/242034 CMP STAT Final result THE, PEYTON S 11/08/242034 CBC w/diff STAT Final result THE, PEYTON S 11/08/242034 Troponin now and 120 min STAT Final result THE, PEYTON Romeo 11/08/24 1905 ECG Adult Once Preliminary result GEORGIE MAXWELL ED Course as of 11/09/24 0124 Mon Nov 08, 2024 2148 CBC w/diff(!) [HM] 2149 CBC w/diff(!) No leukocytosis, normal Hgb [HM] Tue Nov 09, 2024 0122 CMP CMP WNL [HM] 0122 Troponin now and 120 min Troponin negative [HM] 0122 XR Chest 1 View CXR normal, no obvious rib fractures, no pneumothorax, no consolidation [HM] 0123 ECG Adult EKG showing normal sinus rhythm, no signs of ischemia [HM] ED Course User Index [HM] Danica Wills MD Clinical Impressions as of 11/09/24 0124 Other chest pain Social Determinates of Health Risks (including Economic Stability, Education and level of understanding, Healthcare access and quality and concerning social factors): None identified on this visit Ultimately, this patient was Was discharged Home (Discharge) The encounter diagnosis was Other chest pain. . Patient was counseled on the diagnoses.Discharge medications if any are listed below. Listed medications are thought be either curative for listed diagnoses or will help control ongoing symptoms. Patient is requested to follow up with Patient's Primary Care Provider and Cardiology in order to obtain routine follow-up and specialty care.Instructions on follow up as well as precautions to return to the ER provided verbally by the EM provider, as well as written in patients discharge education packet. ED Prescriptions None Discharge Instructions Follow up with odd bundle worker for further outpatient work up of chest pain Return to care if severe and intractable chest pain recurs Disposition Discharge AVS (Guyanese Snapshot) - Printed 11/09/2024 Heart Score 0 Danica Wills MD Resident 11/09/24124 Cosigned by Georgie Maxwell MD at 11/11/2024 1:01 AM EDT Associated attestation - Georgie Maxwell MD - 11/11/2024 1:01 AM EDT I saw and evaluated the patient with the resident/fellow. I discussed the case with the resident/fellow and agree with the findings and plan as documented. * ED Triage Notes - Chikis Jesus RN - 11/08/2024 7:04 PM EDT Pt arrived via POV with c/o CP, SOB, and left arm pain. Pt states the pain started about an hour ago while sitting on the couch. Pt states he has been seeing a odd bundle worker but has not gotten any dx yet. documented in this encounter Plan of Treatment Not on file documented as of this encounter Procedures Procedure Name Priority Date/Time Associated Diagnosis Comments XR CHEST 1 VIEW STAT 11/08/2024 11:16 PM EDT ED HIV 1/2 ANTIBODY/ANTIGEN SCREEN WITH REFLEX TO HIV I/II DIFFERENTIATION STAT 11/08/2024 8:41 PM EDT ED PROTOCOL HIV 1/2 ANTIBODY/ANTIGEN SCREEN W/REFLEX TO HIV 1/2 ANTIBODY DIFFERENTIATION STAT 11/08/2024 8:41 PM EDT TROPONIN T, HIGH SENSITIVITY, 0 HOUR, PLASMA, REFLEX TO 2 HOUR STAT 11/08/2024 8:41 PM EDT HEPATITIS C ANTIBODY - ED W/REFLEX TO HCV QUANT PCR STAT 11/08/2024 8:41 PM EDT CBC WITH AUTO DIFFERENTIAL STAT 11/08/2024 8:41 PM EDT COMPREHENSIVE METABOLIC PANEL, PLASMA STAT 11/08/2024 8:41 PM EDT ECG ADULT STAT 11/08/2024 7:12 PM EDT documented in this encounter Results * XR Chest 1 View (11/08/2024 11:16 PM EDT) Anatomical Region Laterality Modality Chest Computed Radiogr aphy Impressions 11/08/2024 11:57 PM EDT Unremarkable chest examination. CRITICAL RESULT: No. COMMUNICATION: Per this written report. Drafted by Ike Huang MD on 11/08/2024 11:56 PM Final report signed by Ike Huang MD on 11/08/2024 11:57 PM Narrative 11/08/2024 11:57 PM EDT CLINICAL INDICATION: chest pain TECHNIQUE: XR CHEST 1 VIEW COMPARISON: None. FINDINGS: Lungs are clear. Heart and mediastinal contours are within normal limits. No pneumothorax. No pleural effusion. Bony structures are unremarkable. Procedure Note Ike Huang MD - 11/08/2024 CLINICAL INDICATION: chest pain TECHNIQUE: XR CHEST 1 VIEW COMPARISON: None. FINDINGS: Lungs are clear. Heart and mediastinal contours are within normal limits.No pneumothorax. No pleural effusion. Bony structures are unremarkable. IMPRESSION: Unremarkable chest examination. CRITICAL RESULT: No. COMMUNICATION: Per this written report. Drafted by Ike Huang MD on 11/08/2024 11:56 PM Final report signed by Ike Huang MD on 11/08/2024 11:57 PM Alex Murcia MD IMG XR PROCEDURES Final Res ult * ED HIV 1/2 Antibody/Antigen Screen w/Reflex to HIV 1/2 Differentiation (11/08/2024 8:41 PM EDT) HIV 1 & 2 Antibody/Antigen Screen Non Reactive Non Reactive 11/08/2024 9:31 PM EDT [facility] Comment:Screening for HIV 1 & 2 antibodies, and P24 antigen is NONREACTIVE. No confirmatory testing is required. Blood Venous blood specimen / Unknown Venipuncture / Unknown 11/08/2024 8:41 PM EDT 11/08/2024 8:50 PM EDT us [facility] BLOOD ORDERABLES Final Resul t Performing Organization Address City/State/[facility] Co de Phone Number [facility] [address] [place] [address] * Hepatitis C Antibody - ED (11/08/2024 8:41 PM EDT) Hepatitis C Antibody Negative Negative 11/08/2024 9:29 PM EDT [facility] Blood Venous blood specimen / Unknown Venipuncture / Unknown 11/08/2024 8:41 PM EDT 11/08/2024 8:50 PM EDT us Peyton Parks LAB BLOOD ORDERABLES Final Resul t [facility] [address] [place] [address] * Troponin now and 120 min (11/08/2024 8:41 PM EDT) Troponin T, High Sensitivity, 0 Hour <6 <19 ng/L 11/08/2024 9:07 PM EDT [facility] Blood Venous blood specimen / Unknown Venipuncture / Unknown 11/08/2024 8:41 PM EDT 11/08/2024 8:43 PM EDT us Peyton Parks LAB BLOOD ORDERABLES Final Resul t Performing Organization Address City/[facility]/ZIP Co de Phone Number [facility] [address] [place] [address] * (ABNORMAL) CBC w/diff (11/08/2024 8:41 PM EDT) WBC Count 8.53 3.70 - 10.30 10*3/uL LAB HEMATOLOGY METHOD 11/08/2024 8:45 PM EDT [facility] RBC Count 4.91 4.60 - 6.10 10*6/uL LAB HEMATOLOGY METHOD 11/08/2024 8:45 PM EDT [facility] HGB 15.8 13.7 - 17.5 g/dL LAB HEMATOLOGY METHOD 11/08/2024 8:45 PM EDT [facility] HCT 44.2 40.0 - 51.0 % LAB HEMATOLOGY METHOD 11/08/2024 8:45 PM EDT [facility] Platelet Count 208 155 - 369 10*3/uL LAB HEMATOLOGY METHOD 11/08/2024 8:45 PM EDT [facility] MCV 90 79 - 98 fL LAB HEMATOLOGY METHOD 11/08/2024 8:45 PM EDT [facility] MCH 32.2(H) 26.0 - 32.0 pg LAB HEMATOLOGY METHOD 11/08/2024 8:45 PM EDT [facility] MCHC 35.7(H) 30.7 - 35.5 g/dL LAB HEMATOLOGY METHOD 11/08/2024 8:45 PM EDT [facility] RDW 11.2(L) 11.5 - 14.5 % LAB HEMATOLOGY METHOD 11/08/2024 8:45 PM EDT [facility] MPV 10.2 8.8 - 12.5 fL LAB HEMATOLOGY METHOD 11/08/2024 8:45 PM EDT [facility] nRBC 0.0 <=0.0 per 100 WBCs LAB HEMATOLOGY METHOD 11/08/2024 8:45 PM EDT [facility] Differential Type Automated LAB HEMATOLOGY METHOD 11/08/2024 8:45 PM EDT [facility] Neutrophils % 65 % LAB HEMATOLOGY METHOD 11/08/2024 8:45 PM EDT [facility] Lymphocytes % 25 % LAB HEMATOLOGY METHOD 11/08/2024 8:45 PM EDT [facility] Monocytes % 7 % LAB HEMATOLOGY METHOD 11/08/2024 8:45 PM EDT [facility] Eosinophils % 2 % LAB HEMATOLOGY METHOD 11/08/2024 8:45 PM EDT [facility] Basophils % 1 % LAB HEMATOLOGY METHOD 11/08/2024 8:45 PM EDT [facility] Immature Granulocytes % 0 % LAB HEMATOLOGY METHOD 11/08/2024 8:45 PM EDT [facility] Neutrophils Absolute 5.50 1.60 - 6.10 10*3/uL LAB HEMATOLOGY METHOD 11/08/2024 8:45 PM EDT [facility] Lymphocytes Absolute 2.13 1.20 - 3.90 10*3/uL LAB HEMATOLOGY METHOD 11/08/2024 8:45 PM EDT [facility] Monocytes Absolute 0.63 0.30 - 0.90 10*3/uL LAB HEMATOLOGY METHOD 11/08/2024 8:45 PM EDT [facility] Eosinophils Absolute 0.19 0.00 - 0.50 10*3/uL LAB HEMATOLOGY METHOD 11/08/2024 8:45 PM EDT [facility] Basophils Absolute 0.06 0.00 - 0.10 10*3/uL LAB HEMATOLOGY METHOD 11/08/2024 8:45 PM EDT [facility] Immature Granulocytes Absolute 0.02 0.00 - 0.06 10*3/uL LAB HEMATOLOGY METHOD 11/08/2024 8:45 PM EDT [facility] Blood Venous blood specimen / Unknown Venipuncture / Unknown 11/08/2024 8:41 PM EDT 11/08/2024 8:43 PM EDT Narrative [facility] - 11/08/2024 8:45 PM EDT Therapeutic decision making should be based on absolute values, rather than percentages. us Peyton Parks LAB BLOOD ORDERABLES Final Resul t [facility] [address] [place] [address] * CMP (11/08/2024 8:41 PM EDT) Glucose, Plasma 95 74 - 99 mg/dL 11/08/2024 9:07 PM EDT [facility] BUN, Plasma 14 7 - 21 mg/dL 11/08/2024 9:07 PM EDT [facility] Creatinine, Plasma 1.17 0.70 - 1.20 mg/dL 11/08/2024 9:07 PM EDT [facility] BUN/Creatinine Ratio 12 11/08/2024 9:07 PM EDT [facility] Sodium, Plasma 142 136 - 145 mmol/L 11/08/2024 9:07 PM EDT [facility] Potassium, Plasma 4.2 3.6 - 4.9 mmol/L 11/08/2024 9:07 PM EDT [facility] Chloride, Plasma 106 97 - 107 mmol/L 11/08/2024 9:07 PM EDT [facility] CO2, Plasma 24 22 - 29 mmol/L 11/08/2024 9:07 PM EDT [facility] Anion Gap 12 6 - 16 mmol/L 11/08/2024 9:07 PM EDT [facility] Total Calcium, Plasma 9.6 8.9 - 10.2 mg/dL 11/08/2024 9:07 PM EDT [facility] Total Protein 7.2 6.3 - 7.9 g/dL 11/08/2024 9:07 PM EDT [facility] Albumin, Plasma 4.7 3.5 - 5.2 g/dL 11/08/2024 9:07 PM EDT [facility] AST, Plasma 18 10 - 50 U/L 11/08/2024 9:07 PM EDT [facility] ALT, Plasma 13 10 - 50 U/L 11/08/2024 9:07 PM EDT [facility] Alkaline Phosphatase, Plasma 92 40 - 115 U/L 11/08/2024 9:07 PM EDT [facility] Total Bilirubin, Plasma 0.4 0.2 - 1.1 mg/dL 11/08/2024 9:07 PM EDT [facility] eGFRcr 88.7 mL/min/1.7 3m*2 11/08/2024 9:07 PM EDT [facility] Comment:Reported eGFRcr in m L/min/1.73m2 is based the CKD-EPI 2020 equation that does not use a race coefficient. Blood Venous blood specimen / Unknown Venipuncture / Unknown 11/08/2024 8:41 PM EDT 11/08/2024 8:43 PM EDT us [facility] BLOOD ORDERABLES Final Resul t [facility] [address] [place] [address] * ECG Adult (11/08/2024 7:12 PM EDT) EKG DIAGNOSIS CLASS Normal MUSE ECG Ventricular Rate 94 BPM MUSE ECG Atrial Rate 94 BPM MUSE ECG DE Interval 158 ms MUSE ECG QRSD Interval 88 ms MUSE ECG QT Interval 344 ms MUSE ECG QTC Interval 430 ms MUSE ECG P [place] 80 degrees MUSE ECG R [place] 89 degrees MUSE ECG T Wave [place] 62 degrees MUSE ECG Diagnosis Normal sinus rhythm with sinus arrhythmia MUSE ECG Diagnosis Normal ECG MUSE ECG Diagnosis MUSE ECG Diagnosis Confirmed by Erasto Pisano ([id number]) on 11/09/2024 8:43:57 AM MUSE ECG 11/08/2024 7:12 PM EDT 11/09/2024 8:43 AM EDT us Georgie Maxwell MD ECG ORDERABLES Final Result MUSE ECG documented in this encounter Visit Diagnoses Diagnosis Other chest pain- Primary documented in this encounter Care Teams Credit Interviewer Relationship Specialty Start Date End Date Jewel Dexter MD [address] [facility] [address] [place] [id number] PCP - General 11/08/24 documented as of this encounter
--- NOTE | 2024-11-17 10:30 | MR_ITS ---
APPROVED REPORT Career Placement Specialist: CLINICAL INDICATION Evaluation of interatrial shunt TECHNIQUE Image Acquisition: Cardiac magnetic resonance (CMR) was performed on Siemens Espree MRI 1.5T scanner. Software platform sequences were performed using the Siemens Tyto MR B19 platform. A set of three-plane, low-resolution, large [id number] localizers were initially acquired. Then axial, coronal, sagittal TrueFISP, as well as axial HASTE images, were obtained. These were followed by gated TrueFISP breathold cinematic sequences obtained in the short axis with 8 mm slices and 2 mm gaps, 2-chamber (vertical long axis), 3-chamber, 4-chamber (horizontal long axis). A bolus of contrast was injected intravenously with first-pass sequences obtained in the short axis and four-chamber planes. After approximately 10 minutes, a TI travel attendants sequence was performed to determine the optimal TI time. Using the optimized TI time, delayed contrast enhancement segmented inversion???recovery TurboFLASH sequences were obtained in the short axis, 2-chamber, 3-chamber, and 4-chamber projections. 2D-velocity phase mapping was performed. Functional parameters were calculated by offline analysis on an independent workstation ([employer], [employer]). Contrast: ProHance??? (Gadoteridol) FINDINGS MORPHOLOGY AND FUNCTION Left ventricle: The left ventricle is normal in size. The indexed left ventricular end-diastolic volume (LVEDVi) is 84 ml/m2 (reference range 57-105 ml/m2 in males, 56-96 ml/m2 in females). Normal left ventricular systolic function is present. There is normal left ventricular wall thickness. There are no regional wall motion abnormalities noted. LVEF is calculated at 63.3% (reference range 57-77%). Right ventricle: The right ventricle is normal in size. The indexed right ventricular end-diastolic volume (RVEDVi) is 88 ml/m2 (reference range 61-121 ml/m2 in males, 48-112 ml/m2 in females). Normal right ventricular systolic function is present. RVEF is calculated at 52.0% (reference range 52-72% in males, 51-71% in females). Atria: The left atrium is normal in size. The maximum indexed left atrial volume is 32 ml/m2 (reference range 26-52 ml/m2 in males, 27-53 ml/m2 in females). The right atrium is normal in size. The maximum indexed right atrial volume is 18 ml/m2 (reference range 18-90 ml/m2). The interatrial septum appears aneurysmal. Aorta: The diameter of the aortic annulus is normal, measuring 31 mm (coronal view reference range 21-30 mm in males, 19-27 mm in females). The diameter of the aortic sinus is normal, measuring 34 mm (coronal view reference range 25-42 mm in males, 24-36 mm in females). The diameter of the sinotubular junction is normal, measuring 25 mm (coronal view reference range 18-32 mm in males, 18-28 mm in females). The diameters of the ascending and descending thoracic aorta are normal. Main pulmonary artery: The main pulmonary artery diameter is normal. Pericardium: The pericardial thickness is normal. The pericardial thickness measures 2.0 mm (normal < 4.0 mm). There is no pericardial effusion. VALVES The valvular morphologies in the visualized sequences appear normal. There is no significant valvular stenosis or regurgitation of the mitral, aortic, tricuspid, or pulmonic valve noted visually. Systolic anterior motion of the mitral valve is not visualized. Ratio of pulmonary to systemic flow, Qp:Qs ratio = 1.05 (normal < or = 1.2, hemodynamically significant shunt > 1.5), demonstrating no evidence of hemodynamically significant shunt. TISSUE CHARACTERIZATION Resting Perfusion: Normal myocardial blood flow at rest. No evidence of resting hypoperfusion. Myocardial Fibrosis and/or edema: Normal gadolinium kinetics are present. No evidence of late gadolinium enhancement is noted, consistent with absence of myocardial scarring, infarction, or necrosis. T2-weighted imaging demonstrates no evidence of myocardial edema or inflammation. OTHER No other significant findings are noted. However, this exam is focused on the cardiac structure and function. IMPRESSION Normal LV size with normal LV systolic function. LVEDVi= 84 ml/m2 and LVEF= 63.3%. Normal RV size with normal RV systolic function. RVEDVi= 88 ml/m2 and RVEF= 52.0%. No atrial enlargement. The interatrial septum is aneurysmal. No CMR evidence of myocardial scarring, infarction, or necrosis. No evidence of myocardial edema or inflammation. Perfusion analysis demonstrates normal blood flow at rest with no evidence of resting hypoperfusion. Ratio of pulmonary to systemic flow, Qp:Qs ratio = 1.05 (normal < or = 1.2, hemodynamically significant shunt > 1.5), demonstrating no evidence of hemodynamically significant shunt. COMPARISON None CRITICAL RESULT None COMMUNICATION The above findings were relayed to the patient at the time of the routine outpatient cardiology follow-up visit, prior to dictation of this report. The findings of this cardiac MR were reviewed, reported, and signed by Kvng Nasciemnto MD (Supervisor Type Bar And Segment). Conclusion Electronically signed by : Marianela Nascimento MD 11/29/2024 12:58:10
--- OUTSIDE RECORDS SUMMARY | 2024-11-17 10:50 | XMS_ITS | Clinical Summary ---
[facility] Address [address] [place] [address] Care Team Providers Care Outer Diameter Grinder Name Role Phone Jewel Dexter MD Primary Care Provider [phone] Encounters Date Type Department Care Team Description 11/08/2024 Telephone [facility] [address] [place] [address] Irene Roblero APRN SCHNEIDER - SCHEDULING from Last 3 Months Social History Tobacco Use Types Packs/Day Years Used Date Smoking Tobacco: Never Assessed Sex and Gender Information Value Date Recorded Sex Assigned at Not on file Legal Sex Male 4:11 PM EDT Gender Identity Not on file Sexual Orientation Not on file Plan of Treatment Upcoming Encounters Date Type Department Care Team (Late st Contact Info) Description 12/28/2024 2:00 PM EST Office Visit [facility] [address] [place] [address] Radha Ibrahim APRN [address] [place] [address] [place] [address] Health Maintenance Due Date Last Done Comments INFLUENZA VACCINE 09/17/2024 ANNUAL PHYSICAL 11/08/2024 TDAP/TD VACCINES (3 - Td or Tdap) 10/08/2033 10/09/2023, 09/15/2012 HEPATITIS C SCREENING Completed 11/08/2024 Pneumococcal Vaccine 0-49 Aged Out No longer eligible based on patient's age to complete this topic Procedures Procedure Name Priority Date/Time Associated Diagnosis Comments SCANNED EKG 11/08/2024 SCANNED - LABS 11/03/2024 SCANNED - IMAGING 11/03/2024 SCANNED - LABS 08/30/2024 from Last 3 Months Results * ECG Scan (11/08/2024) Radha Ibrahim OUTSIDE PLANT FIELD ENGINEER ECG ORDERABLES Final Result * IMAGING SCANNED (11/03/2024) Anatomical Region Laterality Modality Radiographic Jahaira ging Mile Auguste MD IMG DIAGNOSTIC IMAGING ORDER NGUYỄN Final Result * LABS SCANNED (11/03/2024) Only the most recent of2 resultswithin the time period is included. Mile Auguste MD LAB BLOOD ORDERABLES Final R esult from Last 3 Months Insurance [facility] P[facility] Care Teams Outer Diameter Grinder Relationship Specialty Start Date End Date Jewel Dexter MD [address] [facility] [address] [place] [address] PCP - General Internal Medicine 10/19/24
--- OUTSIDE RECORDS SUMMARY | 2024-11-17 10:50 | XMS_ITS | Clinical Summary ---
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
--- OUTSIDE RECORDS SUMMARY | 2024-11-17 10:50 | XMS_ITS | Encounter Summary ---
Author Organization Healthcare Address [facility] [address] [id number] Care Team Providers Care Jewelry Appraiser Name Role Phone Jewel Dexter MD Primary Care Provider [phone] Encounter Details Date Type Department Care Team (Latest Contact Info) Description 11/08/2024 Travel Social History Tobacco Use Types Packs/Day Years Used Date Smoking Tobacco: Never Assessed Sex and Gender Information Value Date Recorded Sex Assigned at Not on file Legal Sex Male 7:34 PM EDT Gender Identity Not on file Sexual Orientation Not on file documented as of this encounter Functional Status * Calculated C-SSRS Risk Score (Lifetime/Recent) Answer Date of Assessment Author No Risk Indicated 11/08/2024 9:40 PM EDT Zoey Gill RN * Question Answer Date of Assessment Author 1. Wish to be (Past 1 Month) No 025 9:40 PM EDT Zoey Gill, RN 2. Non-Specific Active Suici whit Thoughts (Past 1 Month) No 11/08/2024 9:40 PM EDT Zoey Gill, RN 6. Suicidal Behavior (Lifetime) No 5 9:40 PM EDT Zoey Gill, RN documented as of this encounter Plan of Treatment Not on file documented as of this encounter Visit Diagnoses Not on filedocumented in this encounter Care Teams Jewelry Appraiser Relationship Specialty Start Date End Date Jewel Dexter MD [address] [facility] [address] [place] [address] PCP - General 11/08/24 documented as of this encounter
--- OUTSIDE RECORDS SUMMARY | 2024-11-17 10:50 | XMS_ITS | Clinical Summary ---
Author Organization Healthcare Address [address] [place] [address] Care Team Providers Care Special Officer Name Role Phone Jewel Dexter MD Primary Care Provider [phone] Allergies No known active allergies Encounters Date Type Department Care Team Description 11/08/2024 8:41 PM EDT - 11/09/2024 12:38 AM EDT Emergency [facility] [address] [place] [address] Georgie Luther MD Other chest pain (Primary Dx) Discharge Disposition: Home or Self Care 11/08/2024 Travel from Last 3 Months Social History Tobacco [...] Mass Index 25.68 11/08/2024 7:08 PM EDT Plan of Treatment Health Maintenance Due Date Last Done Comments [facility]-Depression Screening 1999 [facility]-Infant/Child/Adol SDOH Screenings 1999 [facility]-Obesity Intervention 09/21/2005 [facility]-Varicella Vaccines (2 of 2 - 2-dose childhood series) 12/08/2012 09/15/2012 HPV Vaccines (1 - Male 3-dos e series) 09/21/2014 [facility]- SDOH Screenings 09/21/2017 [facility]-Adult SDOH Screenings 09/21/2017 [facility]-Hepatitis B Vaccines (1 of 3 - 19+ 3-dose series) 09/21/2018 [id number] Vaccine (1 - 2023- season) 2024 [facility]-Influenza Vaccine (#1) 2024 [facility]-DTaP,Tdap,and Td Vaccine s (3 - Td or Tdap) 10/08/2033 10/09/2023, 09/15/2012 [facility]-Zoster Vaccines (1 of 2) 09/21/2049 09/15/2012 [facility]-HIV Screening Completed 11/08/2024 [facility]-Hepatitis C Screening Completed 11/08/2024 [facility]-HIB Vaccines Aged Out No longer e ligible based on patient's age to complete this topic [facility]-Hepatitis A Vaccines Aged Out No longer eligible based on patient's age to complete this topic [facility]-IPV Vaccines Aged Out No longer e ligible based on patient's age to complete this topic [facility]-Pneumococcal Vaccine: Pediatrics (0 to 5 Years) and At-Risk Patients (6 to 49 Years) Aged Out No longer eligible b ased on patient's age to complete this topic [facility]-Rotavirus Vaccines Aged Out No lo nger eligible based on patient's age to complete this topic Procedures Procedure Name Priority Date/Time Associated Diagnosis Comments XR CHEST 1 VIEW STAT 11/08/2024 11:16 PM EDT ED HIV 1/2 ANTIBODY/ANTIGEN SCREEN WITH REFLEX TO HIV I/II DIFFERENTIATION STAT 11/08/2024 8:41 PM EDT ED PROTOCOL HIV 1/2 ANTIBODY/ANTIGEN SCREEN W/REFLEX TO HIV 1/2 ANTIBODY DIFFERENTIATION STAT 11/08/2024 8:41 PM EDT HEPATITIS C ANTIBODY - ED W/REFLEX TO HCV QUANT PCR STAT 11/08/2024 8:41 PM EDT TROPONIN T, HIGH SENSITIVITY, 0 HOUR, PLASMA, REFLEX TO 2 HOUR STAT 11/08/2024 8:41 PM EDT CBC WITH AUTO DIFFERENTIAL STAT 11/08/2024 8:41 PM EDT COMPREHENSIVE METABOLIC PANEL, PLASMA STAT 11/08/2024 8:41 PM EDT ECG ADULT STAT 11/08/2024 7:12 PM EDT from Last 3 Months Results * XR Chest 1 View (11/08/2024 [...] HIV 1/2 Differentiation (11/08/2024 8:41 PM EDT) Pathologist [facility] HIV 1 & 2 Antibody/Antigen Screen Non Reactive Non Reactive 11/08/2024 9:[address] [facility] Comment:Screening for HIV 1 & 2 antibodies, and P24 antigen is NONREACTIVE. No confirmatory testing is required. Blood Venous blood specimen / Unknown Venipuncture / Unknown 11/08/2024 8:41 PM EDT 11/08/2024 8:50 PM EDT Result Lolita Parks LAB BLOOD ORDERABLES Final Resul t Performing Organization Address City/[facility] Co de Phone Number [facility] [address] [place] [address] * Troponin now and 120 min (11/08/2024 8:41 PM EDT) Pathologist [facility] Troponin T, High Sensitivity, 0 Hour <6 <19 ng/L 11/08/2024 9:[address] [facility] Blood Venous blood specimen / Unknown Venipuncture / Unknown 11/08/2024 8:41 PM EDT 11/08/2024 8:43 PM EDT Result Lolita Parks LAB BLOOD ORDERABLES Final Resul t Performing Organization Address City/[facility]/ZIP Co de Phone Number [facility] [address] [place] [address] * Hepatitis C Antibody - ED (11/08/2024 8:41 PM EDT) Pathologist [facility] Hepatitis C Antibody Negative Negative 11/08/2024 9:[address] [facility] Blood Venous blood specimen / Unknown Venipuncture / Unknown 11/08/2024 8:41 PM EDT 11/08/2024 8:50 PM EDT Result Lolita Parks LAB BLOOD ORDERABLES Final Resul t Performing Organization Address City/[facility]/ZIP Co de Phone Number [facility] [address] [place] [address] * (ABNORMAL) CBC w/diff (11/08/2024 8:41 PM EDT) WBC Count 8.53 3.70 - 10.30 10*3/uL LAB HEMATOLOGY METHOD 11/08/2024 8:[address] [facility] RBC Count 4.91 4.60 - 6.10 10*6/uL LAB HEMATOLOGY METHOD 11/08/2024 8:[address] [facility] HGB 15.8 13.7 - 17.5 g/dL LAB HEMATOLOGY METHOD 11/08/2024 8:[address] [facility] HCT 44.2 40.0 - 51.0 % LAB HEMATOLOGY METHOD 11/08/2024 8:[address] [facility] Platelet Count 208 155 - 369 10*3/uL LAB HEMATOLOGY METHOD 11/08/2024 8:[address] [facility] MCV 90 79 - 98 fL LAB HEMATOLOGY METHOD 11/08/2024 8:[address] [facility] MCH 32.2(H) 26.0 - 32.0 pg LAB HEMATOLOGY METHOD 11/08/2024 8:[address] [facility] MCHC 35.7(H) 30.7 - 35.5 g/dL LAB HEMATOLOGY METHOD 11/08/2024 8:[address] [facility] RDW 11.2(L) 11.5 - 14.5 % LAB HEMATOLOGY METHOD 11/08/2024 8:[address] [facility] MPV 10.2 8.8 - 12.5 fL LAB HEMATOLOGY METHOD 11/08/2024 8:[address] [facility] nRBC 0.0 <=0.0 per 100 WBCs LAB HEMATOLOGY METHOD 11/08/2024 8:[address] [facility] Differential Type Automated LAB HEMATOLOGY METHOD 11/08/2024 8:[address] [facility] Neutrophils % 65 % LAB HEMATOLOGY METHOD 11/08/2024 8:[address] [facility] Lymphocytes % 25 % LAB HEMATOLOGY METHOD 11/08/2024 8:[address] [facility] Monocytes % 7 % LAB HEMATOLOGY METHOD 11/08/2024 8:[address] [facility] Eosinophils % 2 % LAB HEMATOLOGY METHOD 11/08/2024 8:[address] [facility] Basophils % 1 % LAB HEMATOLOGY METHOD 11/08/2024 8:[address] [facility] Immature Granulocytes % 0 % LAB HEMATOLOGY METHOD 11/08/2024 8:[address] [facility] Neutrophils Absolute 5.50 1.60 - 6.10 10*3/uL LAB HEMATOLOGY METHOD 11/08/2024 8:[address] [facility] Lymphocytes Absolute 2.13 1.20 - 3.90 10*3/uL LAB HEMATOLOGY METHOD 11/08/2024 8:[address] [facility] Monocytes Absolute 0.63 0.30 - 0.90 10*3/uL LAB HEMATOLOGY METHOD 11/08/2024 8:[address] [facility] Eosinophils Absolute 0.19 0.00 - 0.50 10*3/uL LAB HEMATOLOGY METHOD 11/08/2024 8:[address] [facility] Basophils Absolute 0.06 0.00 - 0.10 10*3/uL LAB HEMATOLOGY METHOD 11/08/2024 8:[address] [facility] Immature Granulocytes Absolute 0.02 0.00 - 0.06 10*3/uL LAB HEMATOLOGY METHOD 11/08/2024 8:[address] [facility] Blood Venous blood specimen / Unknown Venipuncture / Unknown 11/08/2024 8:41 PM EDT 11/08/2024 8:[address] [facility] - 11/08/2024 8:45 PM EDT Therapeutic decision making should be based on absolute values, rather than percentages. us Sherice Parks LAB BLOOD ORDERABLES Final Resul t [facility] [address] [place] [address] * CMP (11/08/2024 8:41 PM EDT) Glucose, Plasma 95 74 - 99 mg/dL 11/08/2024 9:[address] [facility] BUN, Plasma 14 7 - 21 mg/dL 11/08/2024 9:[address] [facility] Creatinine, Plasma 1.17 0.70 - 1.20 mg/dL 11/08/2024 9:[address] [facility] BUN/Creatinine Ratio 12 11/08/2024 9:[address] [facility] Sodium, Plasma 142 136 - 145 mmol/L 11/08/2024 9:[address] [facility] Potassium, Plasma 4.2 3.6 - 4.9 mmol/L 11/08/2024 9:[address] [facility] Chloride, Plasma 106 97 - 107 mmol/L 11/08/2024 9:[address] [facility] CO2, Plasma 24 22 - 29 mmol/L 11/08/2024 9:[address] [facility] Anion Gap 12 6 - 16 mmol/L 11/08/2024 9:[address] [facility] Total Calcium, Plasma 9.6 8.9 - 10.2 mg/dL 11/08/2024 9:[address] [facility] Total Protein 7.2 6.3 - 7.9 g/dL 11/08/2024 9:[address] [facility] Albumin, Plasma 4.7 3.5 - 5.2 g/dL 11/08/2024 9:[address] [facility] AST, Plasma 18 10 - 50 U/L 11/08/2024 9:[address] [facility] ALT, Plasma 13 10 - 50 U/L 11/08/2024 9:[address] [facility] Alkaline Phosphatase, Plasma 92 40 - 115 U/L 11/08/2024 9:[address] [facility] Total Bilirubin, Plasma 0.4 0.2 - 1.1 mg/dL 11/08/2024 9:[address] [facility] eGFRcr 88.7 mL/min/1.7 3m*2 11/08/2024 9:[address] [facility] Comment:Reported eGFRcr in m L/min/1.73m2 is based the CKD-EPI 2020 equation that does not use a race coefficient. Blood Venous blood specimen / Unknown Venipuncture / Unknown 11/08/2024 8:41 PM EDT 11/08/2024 8:43 PM EDT Sherice Parks LAB BLOOD ORDERABLES Final Resul t [facility] [address] [place] [address] * ECG Adult (11/08/2024 7:12 PM EDT) EKG DIAGNOSIS CLASS Normal MUSE ECG Ventricular Rate 94 BPM MUSE ECG Atrial Rate 94 BPM MUSE ECG LA Interval 158 ms MUSE ECG QRSD Interval 88 ms MUSE ECG QT Interval 344 ms MUSE ECG QTC Interval 430 ms MUSE ECG P [place] 80 degrees MUSE ECG R [place] 89 degrees MUSE ECG T Wave [place] 62 degrees MUSE ECG Diagnosis Normal sinus rhythm with sinus arrhythmia MUSE ECG Diagnosis Normal ECG MUSE ECG Diagnosis MUSE ECG Diagnosis Confirmed by Erasto Pisano ([id number]) on 11/09/2024 8:43:57 AM MUSE ECG 11/08/2024 7:12 PM EDT 11/09/2024 8:43 AM EDT Georgie Luther MD ECG ORDERABLES Final Result Performing Organization Address City/[facility] Co de Phone Number MUSE ECG from Last 3 Months Insurance ANTHEM Care Teams Special Officer Relationship Specialty Start Date End Date Jewel Dexter MD [address] [facility] [address] [place] [id number] PCP - General 11/08/24
--- OUTSIDE RECORDS SUMMARY | 2024-11-17 10:50 | XMS_ITS | Encounter Summary ---
Author Organization [facility] Address [address] [place] [address] Care Team Providers Care Ticket Taker Ferryboat Name Role Phone Jewel Dexter MD Primary Care Provider [phone] Reason for Visit * Reason Onset Date Comments ROBLERO - ELINOR 11/08/2024 Encounter Details Date Type Department Care Team (Late st Contact Info) Description 11/08/2024 Telephone [facility] [address] [place] [address] Irene Roblero APRN [address] [place], [place] [id number] ROBLERO - SCHEDULING Social History Tobacco Use Types Packs/Day Years Used Date Smoking Tobacco: Never Assessed Sex and Gender Information Value Date Recorded Sex Assigned at Not on file Legal Sex Male 4:11 PM EDT Gender Identity Not on file Sexual Orientation Not on file documented as of this encounter Miscellaneous Notes * Telephone Encounter - Carmen Martinez RegSched Rep - 11/08/2024 3:21 PM EDT Caller: Greg Ortega Relationship to patient: Self Best call back number: [phone]* Chief complaint: SEVERAL LEAKY VALVES, BACK FLOW, LEFT SIDE IS WORKING AT 37%, DISCOMFORT, CHEST PAIN, HAS BEEN HAVING CHEST PAINS FOR 2 WEEKS. WOULD LIKE TO BE SEEN SOONER IF POSSIBLE. Type of visit: FOLLOW UP Requested date: DWIGHT If rescheduling, when is the original appointment: 11/30 documented in this encounter Plan of Treatment Upcoming Encounters Date Type Department Care Team (Late st Contact Info) Description 12/28/2024 2:00 PM EST Office Visit [facility] [address] [place] [address] Radha Ibrahim, AUTOMATIC WHEEL LINE OPERATOR [address] [place] [address] documented as of this encounter Visit Diagnoses Not on filedocumented in this encounter Care Teams Ticket Taker Ferryboat Relationship Specialty Start Date End Date Jewel Dexter MD [address] [facility] [place] [address] PCP - General Internal Medicine 10/19/24 documented as of this encounter
[2024-11-17] MEDS: 0.9 % SODIUM CHLORIDE 50 ML VIAL 20 ML IV (11:26)
[2024-11-17] MEDS: GADOTERIDOL INJ 20ML SYRINGE 20 ML IV (11:26)
[2024-11-17] MEDS: SODIUM CHLORIDE 0.9% 10ML SYR (RAD ONLY) 10 ML IV (11:26)
== END 2024-11-17 23:59 | disposition home or self-care (01) ==
LOC: RAD 10:18
PROVIDERS: PCP Internal Medicine; Visit Provider Internal Medicine
DX: I25.3 Aneurysm of heart (principal); Q24.8 Other specified congenital malformations of heart; R07.9 Chest pain, unspecified; R06.00 Dyspnea, unspecified
CPT/HCPCS: 75561; A9576

== ENCOUNTER 2024-12-10 20:09 | Emergency (ER) | payer BC, SELFPAY ==
--- OUTSIDE RECORDS SUMMARY | 2024-11-08 20:41 | XMS_ITS | Encounter Summary ---
Author Organization Healthcare Address [address] [id number] Care Team Providers Care Collator Name Role Phone Jewel Dexter MD Primary Care Provider [phone] Reason for Visit * Reason Comments Chest Pain Encounter Details Date Type Department Care Team ([facility] st Contact Info) Description 11/08/2024 8:41 PM EDT - 11/09/2024 12:38 AM EDT Emergency [facility] Emergency Department [address] [place] [address] Georgie Maxwell MD [address] [place] [address] Other chest pain (Primary Dx) Discharge Disposition: [...] 11/09/2024 12:30 AM EDT Follow up with printing bindery assistant for further outpatient work up of chest [...] the last year is currently following with printing bindery assistant. States originally the chest pain was few [...] received results but has not yet seen printing bindery assistant. Has strong family history of cardiac disease. [...] work up. Patient has physical job at [employer] that required repetitive movement, it is possible [...] Prescriptions None Discharge Instructions Follow up with printing bindery assistant for further outpatient work up of chest pain Return to care if severe and intractable chest pain recurs Disposition Discharge AVS ([employer]) - Printed 11/09/2024 Heart Score 0 [...] Pt states he has been seeing a printing bindery assistant but has not gotten any dx yet. [...] Reactive Non Reactive 11/08/2024 9:31 PM EDT [facility] Comment:Screening for HIV 1 & 2 antibodies, and P24 antigen is NONREACTIVE. No confirmatory testing is required. Blood Venous blood specimen / Unknown Venipuncture / Unknown 11/08/2024 8:41 PM EDT 11/08/2024 8:50 PM EDT [facility] BLOOD ORDERABLES Final Resul t Performing Organization Address City/State/[facility] Co de Phone Number [facility] [address] [place] [address] * Hepatitis C Antibody - ED (11/08/2024 8:41 PM EDT) Hepatitis C Antibody Negative Negative 11/08/2024 9:29 PM EDT [facility] Blood Venous blood specimen / Unknown Venipuncture / Unknown 11/08/2024 8:41 PM EDT 11/08/2024 8:50 PM EDT us [facility] BLOOD ORDERABLES Final Resul t [facility] [address] [place] [address] * Troponin now and 120 min (11/08/2024 8:41 PM EDT) Troponin T, High Sensitivity, 0 Hour <6 <19 ng/L 11/08/2024 9:07 PM EDT [facility] Blood Venous blood specimen / Unknown Venipuncture / Unknown 11/08/2024 8:41 PM EDT 11/08/2024 8:43 PM EDT us [facility] BLOOD ORDERABLES Final Resul t Performing Organization Address City/[facility]/ZIP Co de Phone Number [facility] [address] [place] [address] * (ABNORMAL) CBC w/diff (11/08/2024 8:41 PM EDT) WBC Count 8.53 3.70 - 10.30 10*3/uL LAB HEMATOLOGY METHOD 11/08/2024 8:45 PM EDT [facility] RBC Count 4.91 4.60 - 6.10 10*6/uL LAB HEMATOLOGY METHOD 11/08/2024 8:45 PM EDT [facility] HGB 15.8 13.7 - 17.5 g/dL LAB HEMATOLOGY METHOD 11/08/2024 8:45 PM EDT [facility] HCT 44.2 40.0 - 51.0 % LAB HEMATOLOGY METHOD 11/08/2024 8:45 PM EDT [facility] Platelet Count 208 155 - 369 10*3/uL LAB HEMATOLOGY METHOD 11/08/2024 8:45 PM EDT [facility] MCV 90 79 - 98 fL LAB HEMATOLOGY METHOD 11/08/2024 8:45 PM EDT [facility] MCH 32.2(H) 26.0 - 32.0 pg LAB HEMATOLOGY METHOD 11/08/2024 8:45 PM EDT [facility] MCHC 35.7(H) 30.7 - 35.5 g/dL LAB HEMATOLOGY METHOD 11/08/2024 8:45 PM EDT [facility] RDW 11.2(L) 11.5 - 14.5 % LAB HEMATOLOGY METHOD 11/08/2024 8:45 PM EDT [facility] MPV 10.2 8.8 - 12.5 fL LAB HEMATOLOGY METHOD 11/08/2024 8:45 PM EDT [facility] nRBC 0.0 <=0.0 per 100 WBCs LAB HEMATOLOGY METHOD 11/08/2024 8:45 PM EDT [facility] Differential Type Automated LAB HEMATOLOGY METHOD 11/08/2024 8:45 PM EDT [facility] Neutrophils % 65 % LAB HEMATOLOGY METHOD 11/08/2024 8:45 PM EDT [facility] Lymphocytes % 25 % LAB HEMATOLOGY METHOD 11/08/2024 8:45 PM EDT [facility] Monocytes % 7 % LAB HEMATOLOGY METHOD 11/08/2024 8:45 PM EDT [facility] Eosinophils % 2 % LAB HEMATOLOGY METHOD 11/08/2024 8:45 PM EDT [facility] Basophils % 1 % LAB HEMATOLOGY METHOD 11/08/2024 8:45 PM EDT [facility] Immature Granulocytes % 0 % LAB HEMATOLOGY METHOD 11/08/2024 8:45 PM EDT [facility] Neutrophils Absolute 5.50 1.60 - 6.10 10*3/uL LAB HEMATOLOGY METHOD 11/08/2024 8:45 PM EDT [facility] Lymphocytes Absolute 2.13 1.20 - 3.90 10*3/uL LAB HEMATOLOGY METHOD 11/08/2024 8:45 PM EDT [facility] Monocytes Absolute 0.63 0.30 - 0.90 10*3/uL LAB HEMATOLOGY METHOD 11/08/2024 8:45 PM EDT [facility] Eosinophils Absolute 0.19 0.00 - 0.50 10*3/uL LAB HEMATOLOGY METHOD 11/08/2024 8:45 PM EDT [facility] Basophils Absolute 0.06 0.00 - 0.10 10*3/uL LAB HEMATOLOGY METHOD 11/08/2024 8:45 PM EDT [facility] Immature Granulocytes Absolute 0.02 0.00 - 0.06 10*3/uL LAB HEMATOLOGY METHOD 11/08/2024 8:45 PM EDT [facility] Blood Venous blood specimen / Unknown Venipuncture / Unknown 11/08/2024 8:41 PM EDT 11/08/2024 8:43 PM EDT Narrative [facility] - 11/08/2024 8:45 PM EDT Therapeutic decision making should be based on absolute values, rather than percentages. [facility] BLOOD ORDERABLES Final Resul t [facility] [address] [place] [address] * CMP (11/08/2024 8:41 PM EDT) Glucose, Plasma 95 74 - 99 mg/dL 11/08/2024 9:07 PM EDT [facility] BUN, Plasma 14 7 - 21 mg/dL 11/08/2024 9:07 PM EDT [facility] Creatinine, Plasma 1.17 0.70 - 1.20 mg/dL 11/08/2024 9:07 PM EDT [facility] BUN/Creatinine Ratio 12 11/08/2024 9:07 PM EDT [facility] Sodium, Plasma 142 136 - 145 mmol/L 11/08/2024 9:07 PM EDT [facility] Potassium, Plasma 4.2 3.6 - 4.9 mmol/L 11/08/2024 9:07 PM EDT [facility] Chloride, Plasma 106 97 - 107 mmol/L 11/08/2024 9:07 PM EDT [facility] CO2, Plasma 24 22 - 29 mmol/L 11/08/2024 9:07 PM EDT [facility] Anion Gap 12 6 - 16 mmol/L 11/08/2024 9:07 PM EDT [facility] Total Calcium, Plasma 9.6 8.9 - 10.2 mg/dL 11/08/2024 9:07 PM EDT [facility] Total Protein 7.2 6.3 - 7.9 g/dL 11/08/2024 9:07 PM EDT [facility] Albumin, Plasma 4.7 3.5 - 5.2 g/dL 11/08/2024 9:07 PM EDT [facility] AST, Plasma 18 10 - 50 U/L 11/08/2024 9:07 PM EDT [facility] ALT, Plasma 13 10 - 50 U/L 11/08/2024 9:07 PM EDT [facility] Alkaline Phosphatase, Plasma 92 40 - 115 U/L 11/08/2024 9:07 PM EDT [facility] Total Bilirubin, Plasma 0.4 0.2 - 1.1 mg/dL 11/08/2024 9:07 PM EDT [facility] eGFRcr 88.7 mL/min/1.7 3m*2 11/08/2024 9:07 PM EDT [facility] Comment:Reported eGFRcr in m L/min/1.73m2 is based the CKD-EPI 2020 equation that does not use a race coefficient. Blood Venous blood specimen / Unknown Venipuncture / Unknown 11/08/2024 8:41 PM EDT 11/08/2024 8:43 PM EDT [facility] BLOOD ORDERABLES Final Resul t [facility] [address] [place] [address] * ECG Adult (11/08/2024 7:12 PM EDT) EKG DIAGNOSIS CLASS Normal MUSE ECG Ventricular Rate 94 BPM MUSE ECG Atrial Rate 94 BPM MUSE ECG AR Interval 158 ms MUSE ECG QRSD Interval 88 ms MUSE ECG QT Interval 344 ms MUSE ECG QTC Interval 430 ms MUSE ECG P Alpha 80 degrees MUSE ECG R Alpha 89 degrees MUSE ECG T Wave Alpha 62 degrees MUSE ECG Diagnosis Normal sinus [...] Primary documented in this encounter Care Teams Collator Relationship Specialty Start Date End Date Jewel Dexter MD [address] [facility] [address] [place] [id number] PCP - General 11/08/24 documented as of this encounter
[2024-12-10 20:21] VITALS: BP 148/88; PULSE 95; RESP 18; TEMP 36.8; O2SAT 100; BMI 26.0
--- NOTE | 2024-12-10 20:44 | HMH.EDGENADL ---
Discharge Plan Disposition Patient Disposition: Home, Self-Care Condition: Good Prescriptions Prescriptions: New ondansetron 4 mg tablet,disintegrating 4 mg PO DAILY Qty: 30 0RF No Action Tylenol Extra Strength 500 mg powder in packet 500 mg PO Q6H PRN ibuprofen 100 mg tablet 200 mg PO QID PRN Referrals Follow up/Referrals: Jewel Dexter MD [Primary Care Provider, Medical] - See instructions Activity Restrictions/Add. Instructions Additional Instructions/Restrictions: Return to the emergency department for any acute or worsening symptoms. Clinical Impressions Clinical Impression: Groin pain Instructions Patient Instructions: DI for Diarrhea and Traveler's Diarrhea in Adults, DI for Diarrhea and Traveler's Diarrhea in Children, DI for Nausea in Adults, DI for Nausea in Children Print Language Print Language: Belarusian Discharge ED Provider: Doris Mitchell General Adult HPI General Chief complaint: Nausea/Vomiting/Diarrhea Stated complaint: Possible Allergic Reaction to Testosterone Time Seen by Provider: 12/10/24 20:44 Mode of Arrival: Ambulatory Source of Information: Patient Description of Symptoms (Recalled from ER Triage Doc. by RN): Pt presents for evaluation of n/v and not feeling well since . Pt states he started taking testosterone injections on friday, this is not a prescribed medication. Pt states he is taking it to have more energy and put on more muscle. History of Present Illness HPI narrative: Patient is a 24-year-old male with no significant past medical history who presents to the emergency department with pain in his right groin and feeling unwell. Patient states that he started taking testosterone injection in his butt on Friday. Patient states that is not a prescribed medication but decided to use it to help with gaining muscle. Patient denies any fevers vomiting or diarrhea. Patient denies any abdominal pain but states that he has had some pain in his right groin. Patient denies any testicular pain or testicular swelling. Patient states that he does not take any other daily medications. Related Data Home Medications ?Medication ?Instructions ?Recorded ?Confirmed acetaminophen 500 mg oral powder 500 mg PO Q6H PRN 08/30/24 11/11/24 packet (Tylenol Extra Strength) ibuprofen 100 mg tablet 200 mg PO QID PRN 08/30/24 11/11/24 Previous Rx's ?Medication ?Instructions ?Recorded ondansetron 4 mg disintegrating 4 mg PO DAILY #30 tabs 12/10/24 tablet Allergies Allergy/AdvReac Type Severity Reaction Status Date / Time No Known Allergies Allergy Verified 11/11/24 13:11 [facility] Disclaimer: The information contained in this section may have been updated after the patient was seen, as this information can be updated by other users. Medical History Family history of heart valve abnormality Tachycardia Fatigue SOB (shortness of breath) Worsening angina Social History Smoking Status: Never smoker alcohol intake: never current occupational status: other Travel in the last 8 weeks?: None Have you lived/traveled outside US in past 30 days?: No Contact w/someone who lives/traveled outside US past 30 days?: No Exposure to someone with infectious disease in past 14 days?: No Do you have a fever (greater than 100.4 F or 38 C)?: No Have you tested positive for COVID-19?: No Exposed to someone with COVID-19 in past 14 days?: No Do you have a sore throat?: No Do you have a cough?: No Do you have any weakness?: No Do you have any diarrhea?: No Are you experiencing any unusual bleeding?: No Do you have any muscle aches/pain?: No Do you have any abdominal pain?: No Are you experiencing loss of taste or smell?: No Other Medical History Have you received the Pneumonia Vaccine: No ROS Obtained: Yes All systems reviewed & no additional complaints except as documented and Yes Systems reviewed as appropriate & no additional complaints except as documented Physical Exam General General appearance: alert and in no apparent distress Head Head exam: atraumatic, normocephalic and normal inspection Eye Eye exam: Present normal appearance, PERRL and EOMI; Absent scleral icterus ENT ENT exam: Present normal exam and normal external ear exam Neck Neck exam: Present normal inspection and full ROM Chest Chest inspection: Present normal inspection and symmetric chest wall rise Respiratory Respiratory exam: Present normal lung sounds bilaterally; Absent respiratory distress or wheezes Cardiovascular Cardiovascular exam: Present regular rate, normal rhythm and normal heart sounds Abdominal Exam Abdominal exam: Present soft, distention and tenderness (right groin tenderness, no bulge, no testicular swelling or tenderness); Absent guarding or rebound Extremities Exam Extremities exam: Present normal inspection and full ROM Back Exam Back exam: Present normal inspection and full ROM Neurological Exam Neurological exam: Present alert and oriented X3 Psychiatric Psychiatric exam: Present normal affect and normal mood Skin Skin exam: Present warm and dry Medical Decision Making Medical Records Screening: Per USPSTF and CDC recommendations, given the prevalence of disease in our region, it is our hospital?s policy to screen for HIV and viral Hepatitis for all patients aged 18 and over and those with ongoing risk factors. Mykel Inquiry Pt receiving controlled substance: No Vital Signs: 12/10/24 20:21 12/10/24 22:44 Temperature 98.3 F 98.3 F Temperature Source Temporal Artery Scan Oral Pulse Rate 95 H Pulse Rate [Right] 95 H Respiratory Rate 18 18 Blood Pressure 148/88 H Blood Pressure [Right Arm] 148/88 H Blood Pressure Mean [Right Arm] 108 Blood Pressure Source [Right Arm] Automatic Cuff Blood Pressure Position [Right Arm] Sitting 02 Sat by Pulse Oximetry 100 Oxygen Delivery Method Room Air Room Air Lab Data Lab results reviewed: Yes I reviewed the patient's lab results. Lab Results 12/10/24 21:00: WBC 12.0 H, RBC 4.98, Hgb 16.0, Hct 45.0, MCV 90.4, MCH 32.1 H, MCHC 35.6 H, RDW 11.3 L, Plt Count 203, MPV 10.2, Neut % (Auto) 75.5, Lymph % (Auto) 14.1, [place] % (Auto) 8.9, Eos % (Auto) 0.8, Baso % (Auto) 0.4, Neut # (Auto) 9.0 H, Lymph # (Auto) 1.7, [place] # (Auto) 1.1 H, Eos # (Auto) 0.1, Baso # (Auto) 0.1, Sodium 136, Potassium 3.5, Chloride 100, Carbon Dioxide 29, Anion Gap 10.5, BUN 13, Creatinine 0.80, Estimated Creat Clear 184, Estimated GFR 118, Est GFR ( Amer) 143, Glucose 111 H, Calcium 9.4, Total Bilirubin 1.1, AST 27, ALT 24, Alkaline Phosphatase 86, Total Protein 8.0, Albumin 4.8, Globulin 3.2, Albumin/Globulin Ratio 1.5 12/10/24 21:15: Urine Color Yellow, Urine Appearance Clear, Urine pH 7.0, Ur Specific [place] 1.020, Urine Protein Negative, Urine Glucose (UA) Negative, Urine Ketones 1+, Urine Blood Negative, Urine Nitrate Negative, Urine Bilirubin Negative, Urine Urobilinogen 0.2, Ur Leukocyte Esterase Negative, Ur Squamous Epith Cells Occasional, Urine Bacteria Trace, Urine Mucus 4+, Ur C. trach DNA (PCR) Negative, U N.gonorrhoeae DNA PCR Negative, T. vaginalis (PCR) Negative 12/10/24 21:00 12/10/24 21:00 Orders (Tests/Meds): ED MEDICATIONS Discontinued Medications Generic Name Dose Route Start Last Admin Trade Name Freq PRN Reason Stop Dose Admin Iopamidol 75 ml 12/10/24 21:36 12/10/24 21:37 Iopamidol-370 (76%);100ml Bottle IV 12/10/24 21:37 75 ml ONCE ONE Administration Ondansetron HCl 4 mg 12/10/24 21:30 12/10/24 21:33 Ondansetron 4mg/2ml Vial IV 12/10/24 21:31 4 mg ONCE ONE Administration Sodium Chloride 10 ml 12/10/24 21:36 12/10/24 21:37 Sodium Chloride 0.9% 10ml Syr (Rad Only) IV 12/10/24 21:37 10 ml ONCE ONE Administration ORDERS Category Date Time Status CT abdomen pelvis w con Stat Cat Scan 12/10/24 20:59 Completed CBC w/Auto Diff [Complete Blood Count Auto Diff] Stat Lab 12/10/24 21:00 Completed CMP [Comprehensive Metabolic Panel] Stat Lab 12/10/24 21:00 Completed UA [Urinalysis and Microscopic] Stat Lab 12/10/24 21:15 Completed Urine Chlam/Gono/Trich ([facility]) Stat Lab 12/10/24 21:15 Completed Medical Decision Narrative: Patient is a 24-year-old gentleman with no significant past medical history who presented to the emergency department with generally feeling unwell as well as right groin pain. On arrival, patient is hemodynamically stable with unremarkable vital signs. Differential includes but not limited to: Reaction to testosterone, hernia, viral syndrome, electrolyte abnormalities, amongst others. Patient's labs were reviewed and interpreted by myself: Patient had a mild leukocytosis, hemoglobin was stable. CMP was unremarkable. Glucose normal. UA showed no evidence of infection. CT scan of the abdomen was obtained showed no acute pathology on my review or per radiology. At this time, patient was stable and felt to be appropriate for discharge home return precautions were discussed. Critical Care Critical Care Time Critical Care Time: No
--- OUTSIDE RECORDS SUMMARY | 2024-12-10 20:47 | XMS_ITS | Encounter Summary ---
Author Organization Healthcare Address [facility] [place] [id number] Care Team Providers Care Face Boss Name Role Phone Jewel Dexter MD Primary Care Provider Encounter Details Date Type Department Care Team [...] on filedocumented in this encounter Care Teams Face Boss Relationship Specialty Start Date End Date Jewel Dexter MD [address] [place] [address] PCP - General 11/08/24 documented as of this encounter
--- OUTSIDE RECORDS SUMMARY | 2024-12-10 20:47 | XMS_ITS | Clinical Summary ---
Author Organization Healthcare Address [address] [place] [address] Care Team Providers Care Tombstone Carver Name Role Phone Jewel Dexter MD Primary Care Provider [phone] Allergies No known active allergies Encounters Date Type Department Care Team Description 11/08/2024 8:41 PM EDT - 11/09/2024 12:38 AM EDT Emergency [facility] [address] [place] [address] Georgie Luther MD Other chest pain (Primary [...] Date Last Done Comments [facility]-Depression Screening 1999 [facility]-/Child/Adol SDOH Screenings 1999 [facility]-Obesity Intervention 09/21/2005 [facility]-Varicella Vaccines (2 of 2 - 2-dose childhood series) 12/08/2012 09/15/2012 HPV Vaccines (1 - Male 3-dos e series) 09/21/2014 [facility]- SDOH Screenings 09/21/2017 [facility]-Adult SDOH Screenings 09/21/2017 [facility]-Hepatitis B Vaccines (1 of 3 - 19+ 3-dose series) 09/21/2018 GQO-YPHNU-20 Vaccine (1 - 2023- season) 2024 [facility]-Influenza [...] 1/2 Differentiation (11/08/2024 8:41 PM EDT) Pathologist [facility] HIV 1 & 2 Antibody/Antigen Screen Non Reactive Non Reactive 11/08/2024 9:31 PM EDT [facility] Comment:Screening for HIV 1 & 2 antibodies, and P24 antigen is NONREACTIVE. No confirmatory testing is required. Blood Venous blood specimen / Unknown Venipuncture / Unknown 11/08/2024 8:41 PM EDT 11/08/2024 8:50 PM EDT Result Lolita Parks LAB BLOOD ORDERABLES Final Resul t Performing Organization Address City/[facility] Co de Phone Number [facility] [address] [place] [address] * Troponin now and 120 min (11/08/2024 8:41 PM EDT) Pathologist [facility] Troponin T, High Sensitivity, 0 Hour <6 <19 ng/L 11/08/2024 9:07 PM EDT [facility] Blood Venous blood specimen / Unknown Venipuncture / Unknown 11/08/2024 8:41 PM EDT 11/08/2024 8:43 PM EDT Result Lolita Parks LAB BLOOD ORDERABLES Final Resul t Performing Organization Address City/[facility]/ZIP Co de Phone Number [facility] [address] [place] [address] * Hepatitis C Antibody - ED (11/08/2024 8:41 PM EDT) Pathologist [facility] Hepatitis C Antibody Negative Negative 11/08/2024 9:29 PM EDT [facility] Blood Venous blood specimen / Unknown Venipuncture / Unknown 11/08/2024 8:41 PM EDT 11/08/2024 8:50 PM EDT Result Lolita Parks LAB BLOOD ORDERABLES Final Resul t Performing Organization Address City/[facility]/ZIP Co de Phone Number [facility] [address] [place] [address] * (ABNORMAL) CBC w/diff (11/08/2024 8:41 PM EDT) WBC Count 8.53 3.70 - 10.30 10*3/uL LAB HEMATOLOGY METHOD 11/08/2024 8:45 PM EDT [facility] RBC Count 4.91 4.60 - 6.10 10*6/uL LAB HEMATOLOGY METHOD 11/08/2024 8:45 PM EDT [facility] HGB 15.8 13.7 - 17.5 g/dL LAB HEMATOLOGY METHOD 11/08/2024 8:45 PM EDT [facility] HCT 44.2 40.0 - 51.0 % LAB HEMATOLOGY METHOD 11/08/2024 8:45 PM EDT [facility] Platelet Count 208 155 - 369 10*3/uL LAB HEMATOLOGY METHOD 11/08/2024 8:45 PM EDT [facility] MCV 90 79 - 98 fL LAB HEMATOLOGY METHOD 11/08/2024 8:45 PM EDT [facility] MCH 32.2(H) 26.0 - 32.0 pg LAB HEMATOLOGY METHOD 11/08/2024 8:45 PM EDT [facility] MCHC 35.7(H) 30.7 - 35.5 g/dL LAB HEMATOLOGY METHOD 11/08/2024 8:45 PM EDT [facility] RDW 11.2(L) 11.5 - 14.5 % LAB HEMATOLOGY METHOD 11/08/2024 8:45 PM EDT [facility] MPV 10.2 8.8 - 12.5 fL LAB HEMATOLOGY METHOD 11/08/2024 8:45 PM EDT [facility] nRBC 0.0 <=0.0 per 100 WBCs LAB HEMATOLOGY METHOD 11/08/2024 8:45 PM EDT [facility] Differential Type Automated LAB HEMATOLOGY METHOD 11/08/2024 8:45 PM EDT [facility] Neutrophils % 65 % LAB HEMATOLOGY METHOD 11/08/2024 8:45 PM EDT [facility] Lymphocytes % 25 % LAB HEMATOLOGY METHOD 11/08/2024 8:45 PM EDT [facility] Monocytes % 7 % LAB HEMATOLOGY METHOD 11/08/2024 8:45 PM EDT [facility] Eosinophils % 2 % LAB HEMATOLOGY METHOD 11/08/2024 8:45 PM EDT [facility] Basophils % 1 % LAB HEMATOLOGY METHOD 11/08/2024 8:45 PM EDT [facility] Immature Granulocytes % 0 % LAB HEMATOLOGY METHOD 11/08/2024 8:45 PM EDT [facility] Neutrophils Absolute 5.50 1.60 - 6.10 10*3/uL LAB HEMATOLOGY METHOD 11/08/2024 8:45 PM EDT [facility] Lymphocytes Absolute 2.13 1.20 - 3.90 10*3/uL LAB HEMATOLOGY METHOD 11/08/2024 8:45 PM EDT [facility] Monocytes Absolute 0.63 0.30 - 0.90 10*3/uL LAB HEMATOLOGY METHOD 11/08/2024 8:45 PM EDT [facility] Eosinophils Absolute 0.19 0.00 - 0.50 10*3/uL LAB HEMATOLOGY METHOD 11/08/2024 8:45 PM EDT [facility] Basophils Absolute 0.06 0.00 - 0.10 10*3/uL LAB HEMATOLOGY METHOD 11/08/2024 8:45 PM EDT [facility] Immature Granulocytes Absolute 0.02 0.00 - 0.06 10*3/uL LAB HEMATOLOGY METHOD 11/08/2024 8:45 PM EDT [facility] Blood Venous blood specimen / Unknown Venipuncture / Unknown 11/08/2024 8:41 PM EDT 11/08/2024 8:43 PM EDT Narrative [facility] - 11/08/2024 8:45 PM EDT Therapeutic decision making should be based on absolute values, rather than percentages. us Sherice Parks LAB BLOOD ORDERABLES Final Resul t [facility] [address] [place] [address] * CMP (11/08/2024 8:41 PM EDT) Glucose, Plasma 95 74 - 99 mg/dL 11/08/2024 9:07 PM EDT [facility] BUN, Plasma 14 7 - 21 mg/dL 11/08/2024 9:07 PM EDT [facility] Creatinine, Plasma 1.17 0.70 - 1.20 mg/dL 11/08/2024 9:07 PM EDT [facility] BUN/Creatinine Ratio 12 11/08/2024 9:07 PM EDT [facility] Sodium, Plasma 142 136 - 145 mmol/L 11/08/2024 9:07 PM EDT [facility] Potassium, Plasma 4.2 3.6 - 4.9 mmol/L 11/08/2024 9:07 PM EDT [facility] Chloride, Plasma 106 97 - 107 mmol/L 11/08/2024 9:07 PM EDT [facility] CO2, Plasma 24 22 - 29 mmol/L 11/08/2024 9:07 PM EDT [facility] Anion Gap 12 6 - 16 mmol/L 11/08/2024 9:07 PM EDT [facility] Total Calcium, Plasma 9.6 8.9 - 10.2 mg/dL 11/08/2024 9:07 PM EDT [facility] Total Protein 7.2 6.3 - 7.9 g/dL 11/08/2024 9:07 PM EDT [facility] Albumin, Plasma 4.7 3.5 - 5.2 g/dL 11/08/2024 9:07 PM EDT [facility] AST, Plasma 18 10 - 50 U/L 11/08/2024 9:07 PM EDT [facility] ALT, Plasma 13 10 - 50 U/L 11/08/2024 9:07 PM EDT [facility] Alkaline Phosphatase, Plasma 92 40 - 115 U/L 11/08/2024 9:07 PM EDT [facility] Total Bilirubin, Plasma 0.4 0.2 - 1.1 mg/dL 11/08/2024 9:07 PM EDT [facility] eGFRcr 88.7 mL/min/1.7 3m*2 11/08/2024 9:07 PM EDT [facility] Comment:Reported eGFRcr in m L/min/1.73m2 is based the CKD-EPI 2020 equation that does not use a race coefficient. Blood Venous blood specimen / Unknown Venipuncture / Unknown 11/08/2024 8:41 PM EDT 11/08/2024 8:43 PM EDT Sherice Parks LAB BLOOD ORDERABLES Final Resul t [facility] [address] [place] [address] * ECG Adult (11/08/2024 7:12 PM EDT) EKG DIAGNOSIS CLASS Normal MUSE ECG Ventricular Rate 94 BPM MUSE ECG Atrial Rate 94 BPM MUSE ECG IL Interval 158 ms MUSE ECG QRSD Interval 88 ms MUSE ECG QT Interval 344 ms MUSE ECG QTC Interval 430 ms MUSE ECG P [place] 80 degrees MUSE ECG R [place] 89 degrees MUSE ECG T Wave [place] 62 degrees MUSE ECG Diagnosis Normal sinus rhythm with sinus arrhythmia MUSE ECG Diagnosis Normal ECG MUSE ECG Diagnosis MUSE ECG Diagnosis Confirmed by Erasto Pisano ([id number]) on 11/09/2024 8:43:57 AM MUSE ECG 11/08/2024 7:12 PM EDT 11/09/2024 8:43 AM EDT Georgie Luther MD ECG ORDERABLES Final Result Performing Organization Address City/[facility] Co de Phone Number MUSE ECG from Last 3 Months Insurance ANTHEM Care Teams Tombstone Carver Relationship Specialty Start Date End Date Jewel Dexter MD [address] [facility] [address] [place] [id number] PCP - General 11/08/24
--- OUTSIDE RECORDS SUMMARY | 2024-12-10 20:47 | XMS_ITS | Clinical Summary ---
[facility] Address [address] [place] [address] Care Team Providers Care Rerecording Mixer Name Role Phone Jewel Dexter MD Primary Care Provider [phone] Encounters Date Type Department Care Team Description 11/08/2024 Telephone [facility] [address] [place] [address] Irene Roblero APRN SCHNEIDER - SCHEDULING [...] Description 12/28/2024 2:00 PM EST Office Visit [facility] [address] [place] [address] Radha Ibrahim APRN [address] [place] [address] [place] [address] Health Maintenance Due Date Last [...] - LABS 11/03/2024 SCANNED - IMAGING 11/03/2024 from Last 3 Months Results * ECG Scan (11/08/2024) Radha Ibrahim SUSTAINABILITY COACH ECG ORDERABLES Final Result * IMAGING SCANNED (11/03/2024) Anatomical Region Laterality Modality Radiographic Jahaira ging Mile Auguste MD IMG DIAGNOSTIC IMAGING ORDER NGUYỄN Final Result * LABS SCANNED (11/03/2024) Mile Auguste MD LAB BLOOD ORDERABLES Final R esult from Last 3 Months [facility] Care Teams Rerecording Mixer Relationship Specialty Start Date End Date Jewel Dexter MD [address] [facility] [address] [place] [address] PCP - General Internal Medicine 10/19/24
--- OUTSIDE RECORDS SUMMARY | 2024-12-10 20:47 | XMS_ITS | Clinical Summary ---
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
--- OUTSIDE RECORDS SUMMARY | 2024-12-10 20:47 | XMS_ITS | Encounter Summary ---
Author Organization [facility] Address [address] [place] [address] Care Team Providers Care Leather Stitcher Name Role Phone Jewel Dexter MD Primary Care Provider [phone] Reason for Visit * Reason Onset Date Comments ROBLERO - ELINOR 11/08/2024 Encounter Details Date Type Department Care Team (Late st Contact Info) Description 11/08/[address] [facility] [address] [place] [address] Irene Roblero APRN [address] [place], [place] [id number] ROBLERO - SCHEDULING Social History Tobacco Use [...] to patient: Self Best call back number: [phone]* Chief complaint: SEVERAL LEAKY VALVES, BACK FLOW, [...] Description 12/28/2024 2:00 PM EST Office Visit [facility] [address] [place] [address] Radha Ibrahim, BUS ESCORT [address] [place] [address] [place] [address] documented as of this encounter Visit Diagnoses Not on filedocumented in this encounter Care Teams Leather Stitcher Relationship Specialty Start Date End Date Jewel Dexter MD [address] [facility] [place] [address] PCP - General Internal Medicine 10/19/24 documented as of this encounter
--- NOTE | 2024-12-10 20:59 | CT_ITS ---
PROCEDURE INFORMATION: Exam: CT Abdomen And Pelvis With Contrast Exam date and time: 12/10/2024 9:40 PM Age: 24 years old Clinical indication: Other: Right groin fullness and tenderness TECHNIQUE: Imaging protocol: Computed tomography of the abdomen and pelvis with contrast. Radiation optimization: All CT scans at this facility use at least one of these dose optimization techniques: automated exposure control; mA and/or kV adjustment per patient size (includes targeted exams where dose is matched to clinical indication); or iterative reconstruction. Contrast material: ISOVUE; Contrast volume: 75 ml; Contrast route: IV; COMPARISON: MR CARDIAC WO/W CON 11/17/2024 10:34 AM FINDINGS: Tubes, catheters and devices: None noted. Lungs: Lung bases appear clear. Heart: No significant coronary calcifications. No cardiomegaly. No significant pericardial effusion. Liver: Normal. No mass. Gallbladder and biliary ducts: Normal. No calcified stones. No ductal dilation. Pancreas: Normal. No ductal dilation. Spleen: Normal. No splenomegaly. Adrenal glands: Normal. No mass. Kidneys and ureters: Normal. No hydronephrosis. Stomach and bowel: Unremarkable. No obstruction. No mucosal thickening. Appendix: No evidence of appendicitis. Intraperitoneal space: Unremarkable. No free air. No significant fluid collection. Retroperitoneal space: No significant retroperitoneal inflammatory changes are noted. Vasculature: Unremarkable. No abdominal aortic aneurysm. Lymph nodes: Unremarkable. No enlarged lymph nodes. Urinary bladder: Unremarkable as visualized. Reproductive: Unremarkable as visualized. Bones/joints: Unremarkable. No acute fracture. Soft tissues: Unremarkable. IMPRESSION: No acute findings.
[2024-12-10 21:15] LABS: Hematocrit 45.0 % (42.0-52.0); Hemoglobin 16.0 g/dL (14.1-18.0); Immature Granulocytes % 0.3 %; Mean Corpuscular HGB Conc 35.6 g/dL (31.8-35.4); Mean Corpuscular Hemoglobin 32.1 pg (27.0-31.2); Mean Corpuscular Volume 90.4 fl (80-94); Nucleated Red Blood Cells % 0 %; Platelet Count 203 K/mm3 (142-424); Red Blood Count 4.98 M/mm3 (4.60-6.20); Red Cell Distribution Width-SD 37.3 fL; White Blood Count 12.0 K/mm3 (4.8-10.8)
[2024-12-10 21:21] LABS: Albumin Level 4.8 g/dl (3.5-5.0); Chloride 100 mmol/L (98-107); Potassium 3.5 mmoL/L (3.5-5.1); Sodium 136 mmol/L (136-145)
[2024-12-10 21:21] LABS: Microscopic, Urine URINE MICROSCOPIC (MICROSCOPIC)
[2024-12-10 21:22] LABS: Bilirubin,Urine Negative (Negative); Color,Urine YELLOW (Yellow); Glucose,Urine (UA) Negative (Negative); Ketones,Urine 1+ (Negative); Leukocyte Esterase,Urine Negative (Negative); PH,Urine 7.0 (5.0-8.5); Protein,Urine Negative (Negative); Specific Gravity, Urine 1.020 (1.005-1.030); Urobilinogen,Urine 0.2 EU/dl (0.2)
[2024-12-10 21:23] LABS: Blood Urea Nitrogen 13 mg/dl (9-20); Creatinine Clearance Estimated 184 mL/min (50-200); Creatinine,Serum 0.80 mg/dl (0.66-1.25); Estimated Glomerular Filt Rate 118 ml/min (>60); GFR (African American) 143 ML/MIN (>60)
[2024-12-10 21:24] LABS: Alanine Aminotransferase 24 U/L (12-78); Albumin/Globulin Ratio 1.5 (1.1-1.8); Alkaline Phosphatase 86 U/L (38-126); Anion Gap 10.5 mEq/L (5-15); Aspartate Amino Transferase 27 U/L (17-59); Bilirubin,Total 1.1 mg/dl (0.2-1.3); Calcium 9.4 mg/dl (8.4-10.2); Carbon Dioxide 29 mmol/L (22.0-30.0); Globulin 3.2 g/dL (1.3-3.2); Glucose 111 mg/dl (74-100); Total Protein,Serum 8.0 g/dl (6.3-8.2)
[2024-12-10] MEDS: ONDANSETRON 4MG/2ML VIAL 4 MG IV (21:33)
[2024-12-10] MEDS: SODIUM CHLORIDE 0.9% 10ML SYR (RAD ONLY) 10 ML IV (21:37)
[2024-12-10] MEDS: IOPAMIDOL-370 (76%);100ML BOTTLE 75 ML IV (21:37)
[2024-12-10 21:48] LABS: Bacteria,Urine Trace /lpf; Mucus,Urine 4+ /lpf; Squamous Epithelial Cell,Urine Occasional #/hpf (0-5)
[2024-12-10 22:44] VITALS: BP 148/88; PULSE 95; RESP 18; TEMP 36.8; O2SAT 100
== END 2024-12-10 22:50 | disposition home or self-care (01) ==
PROVIDERS: Emergency Provider Student in an Organized Health Care Education/Training Program; PCP Internal Medicine
DX: R10.30 Lower abdominal pain, unspecified (principal); R11.2 Nausea with vomiting, unspecified
CPT/HCPCS: 74177; 80053; 81001; 85025; 87491; 87591; 87631; 87661; 96374; 99284; J2405; Q9967

== ENCOUNTER 2025-01-27 14:30 | Outpatient (CLI) | payer BC, SELFPAY ==
[2025-01-27 16:47] LABS: Hematocrit 43.7 % (42.0-52.0); Hemoglobin 15.1 g/dL (14.1-18.0); Immature Granulocytes % 0.6 %; Mean Corpuscular HGB Conc 34.6 g/dL (31.8-35.4); Mean Corpuscular Hemoglobin 31.4 pg (27.0-31.2); Mean Corpuscular Volume 90.9 fl (80-94); Nucleated Red Blood Cells % 0 %; Platelet Count 244 K/mm3 (142-424); Red Blood Count 4.81 M/mm3 (4.60-6.20); Red Cell Distribution Width-SD 37.8 fL; White Blood Count 6.7 K/mm3 (4.8-10.8)
== END 2025-01-27 23:59 | disposition home or self-care (01) ==
LOC: LAB.DROPOF 01-28 14:01
PROVIDERS: PCP Internal Medicine; Visit Provider Internal Medicine
DX: R10.31 Right lower quadrant pain (principal); R10.32 Left lower quadrant pain
CPT/HCPCS: 85025

== ENCOUNTER 2025-01-31 16:23 | Emergency (ER) | payer BC, SELFPAY ==
--- NOTE | 2025-01-31 16:57 | HMH.EDGENADL ---
Discharge Plan Disposition Patient Disposition: Home, Self-Care Condition: Good Prescriptions Prescriptions: New omeprazole 20 mg capsule,delayed release(DR/EC) 20 mg PO DAILY Qty: 14 0RF Referrals Follow up/Referrals: Jewel Dexter MD [Primary Care Provider, Medical] - See instructions Wilbur Moreau II, MD [Staff Physician, Gastroenterology] - See instructions Activity Restrictions/Add. Instructions Additional Instructions/Restrictions: Your CT scan was unremarkable. I have sent you with a referral to Dr. Moreau who is our GI doctor. You will need to call him to schedule an appointment. If you have pain with eating, you can trial omeprazole for the next couple weeks as you may have an ulcer with some component of inflammation in your stomach. Clinical Impressions Clinical Impression: Abdominal pain Instructions Patient Instructions: DI for Acute Abdominal Pain Print Language Print Language: [place] Islander Discharge ED Provider: Doris Mitchell General Adult HPI General Chief complaint: Abdominal Pain Stated complaint: Abdominal pain,no N/V Time Seen by Provider: 01/31/25 16:57 History of Present Illness HPI narrative: Patient is a 24-year-old male with no significant past medical history who presents to the emergency department with intermittent bilateral abdominal pain. Patient states that his pain is on his flanks. Patient states that he will get the pain at least once a day sometimes will last for 3 hours at a time and will go away. States that sometimes snacking makes the pain better but symptoms eating a full meal the pain will get worse. Denies any diarrhea or vomiting. Patient reports mild nausea. Patient denies any fevers. Patient denies any chest pain or shortness of breath. Patient denies any headaches vision changes or other neurologic symptoms. Patient denies any prior surgeries except for getting his appendix removed. Denies any urinary symptoms. Related Data Previous Rx's ?Medication ?Instructions ?Recorded omeprazole 20 mg capsule,delayed 20 mg PO DAILY #14 caps 01/31/25 release Allergies Allergy/AdvReac Type Severity Reaction Status Date / Time No Known Allergies Allergy Verified 01/27/25 16:00 [facility] Disclaimer: The information contained in this section may have been updated after the patient was seen, as this information can be updated by other users. Medical History Family history of heart valve abnormality Tachycardia Fatigue SOB (shortness of breath) Worsening angina Social History Smoking Status: Never smoker alcohol intake: never current occupational status: other Travel in the last 8 weeks?: None Have you lived/traveled outside US in past 30 days?: No Contact w/someone who lives/traveled outside US past 30 days?: No Exposure to someone with infectious disease in past 14 days?: No Do you have a fever (greater than 100.4 F or 38 C)?: No Have you tested positive for COVID-19?: No Exposed to someone with COVID-19 in past 14 days?: No Do you have a sore throat?: No Do you have a cough?: No Do you have any weakness?: No Do you have any diarrhea?: No Are you experiencing any unusual bleeding?: No Do you have any muscle aches/pain?: No Do you have any abdominal pain?: No Are you experiencing loss of taste or smell?: No Other Medical History Have you received the Pneumonia Vaccine: No ROS Obtained: Yes All systems reviewed & no additional complaints except as documented and Yes Systems reviewed as appropriate & no additional complaints except as documented Physical Exam General General appearance: alert and in no apparent distress Head Head exam: atraumatic, normocephalic and normal inspection Eye Eye exam: Present normal appearance, PERRL and EOMI; Absent scleral icterus ENT ENT exam: Present normal exam and normal external ear exam Neck Neck exam: Present normal inspection and full ROM Chest Chest inspection: Present normal inspection and symmetric chest wall rise Respiratory Respiratory exam: Present normal lung sounds bilaterally; Absent respiratory distress or wheezes Cardiovascular Cardiovascular exam: Present regular rate, normal rhythm and normal heart sounds Abdominal Exam Abdominal exam: Present soft and distention; Absent tenderness, guarding or rebound Extremities Exam Extremities exam: Present normal inspection and full ROM Back Exam Back exam: Present normal inspection and full ROM Neurological Exam Neurological exam: Present alert and oriented X3 Psychiatric Psychiatric exam: Present normal affect and normal mood Skin Skin exam: Present warm and dry Medical Decision Making Medical Records Medical records reviewed: Yes I reviewed the patient's medical records. Screening: Per USPSTF and CDC recommendations, given the prevalence of disease in our region, it is our hospital?s policy to screen for HIV and viral Hepatitis for all patients aged 18 and over and those with ongoing risk factors. Mykel Inquiry Pt receiving controlled substance: No Vital Signs: 01/31/25 16:59 01/31/25 17:31 01/31/25 17:59 Temperature 98.4 F Temperature Source Oral Pulse Rate 79 67 Pulse Rate [Right] 84 Respiratory Rate 18 Blood Pressure 111/66 111/83 Blood Pressure [Right Arm] 119/68 Blood Pressure Mean [Right Arm] 85 02 Sat by Pulse Oximetry 99 99 98 Oxygen Delivery Method Room Air Room Air Room Air 01/31/25 18:30 01/31/25 18:48 Temperature 98.2 F Temperature Source Pulse Rate 95 H 73 Pulse Rate [Right] Respiratory Rate 16 Blood Pressure 124/71 124/71 Blood Pressure [Right Arm] Blood Pressure Mean [Right Arm] 02 Sat by Pulse Oximetry 98 Oxygen Delivery Method Room Air Lab Data Lab results reviewed: Yes I reviewed the patient's lab results. Lab Results 01/31/25 16:55: Urine Color Yellow, Urine Appearance Clear, Urine pH 6.5, Ur Specific [place] 1.010, Urine Protein Negative, Urine Glucose (UA) Negative, Urine Ketones Negative, Urine Blood Negative, Urine Nitrate Negative, Urine Bilirubin Negative, Urine Urobilinogen 0.2, Ur Leukocyte Esterase Negative, Urine RBC None, Urine WBC None, Ur Squamous Epith Cells None, Urine Bacteria None 01/31/25 17:03: WBC 7.9, RBC 4.90, Hgb 15.6, Hct 44.3, MCV 90.4, MCH 31.8 H, MCHC 35.2, RDW 11.4 L, Plt Count 227, MPV 10.1, Neut % (Auto) 58.4, Lymph % (Auto) 28.9, [place] % (Auto) 7.4, Eos % (Auto) 4.4, Baso % (Auto) 0.5, Neut # (Auto) 4.6, Lymph # (Auto) 2.3, [place] # (Auto) 0.6, Eos # (Auto) 0.4, Baso # (Auto) 0.0, Sodium 138, Potassium 4.1, Chloride 104, Carbon Dioxide 26, Anion Gap 12.1, BUN 22 H, Creatinine 1.00, Estimated Creat Clear 159, Estimated GFR 91, Est GFR ( Amer) 110, Glucose 102 H, Lactate 0.9, Calcium 10.0, Total Bilirubin 0.4, AST 24, ALT 18, Alkaline Phosphatase 91, Total Protein 7.8, Albumin 4.9, Globulin 2.9, Albumin/Globulin Ratio 1.7, Lipase 74 01/31/25 17:03 01/31/25 17:03 Orders (Tests/Meds): ED MEDICATIONS Discontinued Medications Generic Name Dose Route Start Last Admin Trade Name Alec PRN Reason Stop Dose Admin Iopamidol 75 ml 01/31/25 17:52 01/31/25 17:53 Iopamidol-370 (76%);100ml Bottle IV 01/31/25 17:53 75 ml ONCE ONE Administration Sodium Chloride 10 ml 01/31/25 17:52 01/31/25 17:53 Sodium Chloride 0.9% 10ml Syr (Rad Only) IV 01/31/25 17:53 10 ml ONCE ONE Administration ORDERS Category Date Time Status CT abdomen pelvis w con Stat Cat Scan 01/31/25 17:02 Completed POCUS Point of Care (ER Only) Stat Exams 01/31/25 17:02 Completed CBC w/Auto Diff [Complete Blood Count Auto Diff] Stat Lab 01/31/25 17:03 Completed CMP [Comprehensive Metabolic Panel] Stat Lab 01/31/25 17:03 Completed HIV Combo Stat Lab 01/31/25 17:03 Received Hepatitis C Ab Qual. W/ RFX Stat Lab 01/31/25 17:03 Received Lactic Acid Stat Lab 01/31/25 17:03 Completed Lipase Stat Lab 01/31/25 17:03 Completed UA [Urinalysis and Microscopic] Stat Lab 01/31/25 16:55 Completed Medical Decision Narrative: Patient is an otherwise healthy 24-year-old male who presented to the emergency department with bilateral flank pain. Patient states that he has had the pain for about 3 or 4 weeks. Patient and is intermittent in nature. On arrival, patient is hemodynamically stable with unremarkable vital signs. Differential includes but not limited to: Urinary tract infection, pyelonephritis, nephrolithiasis, pancreatitis, gallbladder disease, irritable bowel disease, amongst others. Labs were obtained as well as CT scan of the abdomen. Patient not in pain in the moment therefore patient was not given pain medications. Patient states that he saw his primary care provider who tried to get him a CT scan but with his insurance was unable to get 1 for 3 to 4 weeks therefore his primary care provider recommended that he come here to the emergency department. Patient's labs were reviewed and interpreted by myself: CBC showed no leukocytosis, hemoglobin was stable. CMP was unremarkable. Lipase was normal. UA showed no evidence of infection. CT scan of the abdomen showed no acute pathology. At this time, patient was discharged home with outpatient follow-up with primary care provider as well as outpatient follow-up with GI. Patient was otherwise discharged home in stable condition. Critical Care Critical Care Time Critical Care Time: No
[2025-01-31 16:59] VITALS: BP 119/68; PULSE 84; RESP 18; TEMP 36.9; O2SAT 99; BMI 28.2
[2025-01-31 17:01] LABS: Microscopic, Urine URINE MICROSCOPIC (MICROSCOPIC)
--- NOTE | 2025-01-31 17:02 | CT_ITS ---
PROCEDURE INFORMATION: Exam: CT Abdomen And Pelvis With Contrast Exam date and time: 01/31/2025 5:52 PM Age: 24 years old Clinical indication: Abdominal pain; Additional info: Abdominal pain, pain with eating TECHNIQUE: Imaging protocol: Computed tomography of the abdomen and pelvis with contrast. Radiation optimization: All CT scans at this facility use at least one of these dose optimization techniques: automated exposure control; mA and/or kV adjustment per patient size (includes targeted exams where dose is matched to clinical indication); or iterative reconstruction. Contrast material: ISOVUE; Contrast volume: 75 ml; Contrast route: IV; COMPARISON: CT ABDOMEN PELVIS W CON 12/10/2024 9:40 PM FINDINGS: Liver: Normal. No mass. Gallbladder and biliary ducts: Normal. No calcified stones. No ductal dilation. Pancreas: Normal. No ductal dilation. Spleen: Normal. No splenomegaly. Adrenal glands: Normal. No mass. Kidneys and ureters: Normal. No hydronephrosis. Stomach and bowel: Unremarkable. No obstruction. No mucosal thickening. Appendix: Appendectomy Intraperitoneal space: Unremarkable. No free air. No significant fluid collection. Vasculature: Unremarkable. No abdominal aortic aneurysm. Lymph nodes: Unremarkable. No enlarged lymph nodes. Urinary bladder: Unremarkable as visualized. Reproductive: Unremarkable as visualized. Bones/joints: Unremarkable. No acute fracture. Soft tissues: Unremarkable. IMPRESSION: No acute findings.
[2025-01-31 17:04] LABS: Bilirubin,Urine Negative (Negative); Color,Urine YELLOW (Yellow); Glucose,Urine (UA) Negative (Negative); Ketones,Urine Negative (Negative); Leukocyte Esterase,Urine Negative (Negative); PH,Urine 6.5 (5.0-8.5); Protein,Urine Negative (Negative); Specific Gravity, Urine 1.010 (1.005-1.030); Urobilinogen,Urine 0.2 EU/dl (0.2)
[2025-01-31 17:14] LABS: Hematocrit 44.3 % (42.0-52.0); Hemoglobin 15.6 g/dL (14.1-18.0); Immature Granulocytes % 0.4 %; Mean Corpuscular HGB Conc 35.2 g/dL (31.8-35.4); Mean Corpuscular Hemoglobin 31.8 pg (27.0-31.2); Mean Corpuscular Volume 90.4 fl (80-94); Nucleated Red Blood Cells % 0 %; Platelet Count 227 K/mm3 (142-424); Red Blood Count 4.90 M/mm3 (4.60-6.20); Red Cell Distribution Width-SD 37.9 fL; White Blood Count 7.9 K/mm3 (4.8-10.8)
[2025-01-31 17:24] LABS: Alanine Aminotransferase 18 U/L (12-78); Albumin Level 4.9 g/dl (3.5-5.0); Albumin/Globulin Ratio 1.7 (1.1-1.8); Alkaline Phosphatase 91 U/L (38-126); Anion Gap 12.1 mEq/L (5-15); Aspartate Amino Transferase 24 U/L (17-59); Bilirubin,Total 0.4 mg/dl (0.2-1.3); Blood Urea Nitrogen 22 mg/dl (9-20); Calcium 10.0 mg/dl (8.4-10.2); Carbon Dioxide 26 mmol/L (22.0-30.0); Chloride 104 mmol/L (98-107); Creatinine Clearance Estimated 159 mL/min (50-200); Creatinine,Serum 1.00 mg/dl (0.66-1.25); Estimated Glomerular Filt Rate 91 ml/min (>60); GFR (African American) 110 ML/MIN (>60); Globulin 2.9 g/dL (1.3-3.2); Glucose 102 mg/dl (74-100); Lipase 74 U/L (23-300); Potassium 4.1 mmoL/L (3.5-5.1); Sodium 138 mmol/L (136-145); Total Protein,Serum 7.8 g/dl (6.3-8.2)
[2025-01-31 17:31] VITALS: BP 111/66; PULSE 79; O2SAT 99
[2025-01-31] MEDS: SODIUM CHLORIDE 0.9% 10ML SYR (RAD ONLY) 10 ML IV (17:53)
[2025-01-31] MEDS: IOPAMIDOL-370 (76%);100ML BOTTLE 75 ML IV (17:53)
[2025-01-31 17:59] VITALS: BP 111/83; PULSE 67; O2SAT 98
[2025-01-31 18:30] VITALS: BP 124/71; PULSE 95; O2SAT 98
[2025-01-31 18:48] VITALS: BP 124/71; PULSE 73; RESP 16; TEMP 36.8; O2SAT 97
[2025-02-01 06:00] LABS: Hepatitis C Ab Qual. W/ RFX NEGATIVE (Negative)
== END 2025-01-31 18:55 | disposition home or self-care (01) ==
PROVIDERS: Emergency Provider Student in an Organized Health Care Education/Training Program; PCP Internal Medicine
DX: R10.9 Unspecified abdominal pain (principal)
CPT/HCPCS: 74177; 80053; 81001; 83605; 83690; 85025; 86803; 87389; 99285; Q9967